=== PATIENT | female | born 1955 | race African-American/Black ===

== ENCOUNTER 2017-11-04 15:26 | Inpatient (IN) | payer OTHER ==
[2017-11-04] MEDS ORDERED: SODIUM CHLORIDE 0.9% 1,000 ML IV STA (15:44)
[2017-11-04] MEDS: NALOXONE 0.4 MG/ML 1 ML VIAL IV STA ×2 (15:53→16:03)
[2017-11-04 16:34] LABS: Basophils % (A) 0 %; Eosinophils # (A) 0.3 k/uL (0-0.7); Eosinophils % (A) 3 %; HCT 48.9 % (34.0-46.0); HGB 13.8 gm/dL (11.4-16.0); Hypochromasia Marked; Lymphocytes % (A) 12 %; MCH 24.9 pg (25.0-35.0); MCHC 28.1 g/dL (31.0-37.0); MCV 88.6 fL (80.0-100.0); Mean Platelet Volume 8.3; Monocytes # (A) 0.5 k/uL (0-1.0); Monocytes % (A) 6 %; Neutrophils # (A) 6.9 k/uL (1.3-7.7); Neutrophils % (A) 78 %; Platelet Count 223 k/uL (150-450); RBC 5.52 m/uL (3.80-5.40); RDW 15.8 % (11.5-15.5); VBG PH 7.33 (7.31-7.41); WBC 8.9 k/uL (3.8-10.6)
[2017-11-04 16:44] LABS: ALT 19 U/L (9-52); AST 18 U/L (14-36); Acetaminophen <10.0 ug/mL; Albumin 4.2 g/dL (3.5-5.0); Alcohol <10 mg/dL; Alkaline Phosphatase 67 U/L (38-126); Anion Gap 15 mmol/L; Blood Urea Nitrogen 40 mg/dL (7-17); Calcium 9.1 mg/dL (8.4-10.2); Carbon Dioxide 30 mmol/L (22-30); Chloride 97 mmol/L (98-107); Glucose 98 mg/dL (74-99); Potassium 5.2 mmol/L (3.5-5.1); Salicylate <1.0 mg/dL; Sodium 142 mmol/L (137-145); Total Bilirubin 0.3 mg/dL (0.2-1.3); Total Protein 7.4 g/dL (6.3-8.2)
--- NOTE | 2017-11-04 17:07 | ED ---
Overdose HPI - General Source: patient, EMS Mode of arrival: EMS Limitations: no limitations <Elvira Fernandez - Last Filed: 11/04/17 17:01> <Narendra Hernandez - Last Filed: 11/04/17 19:03> - General Chief Complaint: Overdose Stated Complaint: Overdose Time Seen by Provider: 11/04/17 15:43 - History of Present Illness Initial Comments: X-ray 2 years old female brought in by ambulance, she was quite unresponsive on arrival embolus crew after informed us that she overdosed with the [employer] there are given him some Narcan she did wake up and then she fell asleep or became unresponsive on arrival she is responsive to sternal rub she wakes up she talks ER but then she falls asleep, no review of system is available from the patient , no recent history of trauma or no obvious injury noticed (Elvira Fernandez) - Related Data Home Medications Medication Instructions Recorded Confirmed Albuterol Inhaler [Ventolin Hfa 1 puff INHALATION RT-Q4H PRN 11/04/17 11/04/17 Inhaler] Albuterol Nebulized (Conc) 2.5 mg INHALATION RT-Q4H 11/04/17 11/04/17 [Ventolin Nebulized (Conc)] Beclomethasone Dipropionate [Qvar 1 puff INHALATION RT-BID 11/04/17 11/04/17 80 mcg] Budesonide/Formoterol Fumarate 1 puff INHALATION RT-BID 11/04/17 11/04/17 [Symbicort 160-4.5 Mcg Inhaler] Carvedilol [Coreg] 3.125 mg PO DAILY 11/04/17 11/04/17 Furosemide [Lasix] 40 mg PO DAILY 11/04/17 11/04/17 Losartan [Cozaar] 25 mg PO DAILY 11/04/17 11/04/17 Vitamin B Complex 1 cap PO DAILY 11/04/17 11/04/17 amLODIPine [Norvasc] 5 mg PO DAILY 11/04/17 11/04/17 Allergies Allergy/AdvReac Type Severity Reaction Status Date / Time No Known Allergies Allergy Verified 11/04/17 16:14 Review of Systems ROS Other: All systems not noted in ROS Statement are negative. <Elvira Fernandez - Last Filed: 11/04/17 17:01> ROS Other: All systems not noted in ROS Statement are negative. <Narendra Hernandez - Last Filed: 11/04/17 19:03> ROS Statement: Those systems with pertinent positive or pertinent negative responses have been documented in the HPI. Past Medical History Past Medical History: No Reported History History of Any Multi-Drug Resistant Organisms: None Reported Past Surgical History: No Surgical Hx Reported Past Psychological History: Unable to Obtain Smoking Status: Current every day smoker Past Alcohol Use History: None Reported Past Drug Use History: Heroin, IV Drug Use, Opiates, Prescription Drug Abuse <Elvira Fernandez - Last Filed: 11/04/17 17:01> General Exam Limitations: no limitations <Elvira Fernandez - Last Filed: 11/04/17 17:> <Narendra Hernandez - Last Filed: 11/04/17 19:03> - General Exam Comments Initial Comments: General: The patient is responsive, wakes up only to sternal rub Skin: Skin is warm and dry and no rashes or lesions are noted. Eye: Pupils are equal, round and reactive to light, extra-ocular movements are intact; there is normal conjunctiva bilaterally. Ears, nose, mouth and throat: There are moist mucous membranes and no oral lesions. Neck: The neck is supple, there is no tenderness no obvious signs of trauma to the scalp or the cervical spine Cardiovascular: There is a regular rate and rhythm. No murmur, rub or gallop is appreciated. Respiratory: To auscultation bilateral, decreased breath sounds bilateral Gastrointestinal: Soft, non-distended, non-tender abdomen without masses or organomegaly noted. There is no rebound or guarding present. Bowel sounds are unremarkable. Back: There is no tenderness to palpation in the midline. There is no obvious deformity. Musculoskeletal: Normal ROM, no tenderness, There is no pedal edema. There is no calf tenderness or swelling. No cords were appreciated. Neurological: After the Narcan exam was unremarkable no motor or sensory deficits noticed. Psychiatric: Cooperative, appropriate mood & affect, normal judgment. (Elvira Fernandez) Course <Elvira Fernandez - Last Filed: 11/04/17 17:> <Narendra Hernandez - Last Filed: 11/04/17 19:03> Vital Signs 11/04/17 11/04/17 11/04/17 15:33 16:00 16:30 Temperature 97.1 F L Pulse Rate 82 80 74 Respiratory 14 16 16 Rate Blood Pressure 149/86 123/81 113/73 O2 Sat by Pulse 96 99 98 Oximetry 11/04/17 17:42 Temperature Pulse Rate 78 Respiratory 18 Rate Blood Pressure 113/70 O2 Sat by Pulse 94 L Oximetry EKG is a sinus, ventricular rate is 82 ID interval is 154 QRS duration is 84 QT/ QTc is 392/457 noticed T-wave inversion in lead [address] elevation or ST depression noticed any other leads , She is reassessed at term 1700, CBC, comp his metabolic panel are unremarkable except the creatinine is 1.6 and urine drug screen at this point but blood test is negative for any aspirin and Tylenol or alcohol, patient is still sleepy wakes up but not stable I'm going to go ahead and order a head CT will continue to hydrate her patient is endorsed to Dr. Estrella For further evaluation (Elvira Fernandez) - Reevaluation(s) Reevaluation #1: 11/04/17 19:00 Patient reevaluated this time completely unresponsive despite pressure points applied, and repeated doses of Narcan. CT brain was negative, patient has ABG showing significant CO2 narcosis, will intubate 11/04/17 19:00 (Narendra Hernandez) Procedures - Intubation Time Out Performed: Yes Sedative: Versed Paralytic: Succinylcholine Laryngoscope: Ese Size: 4 Assist Device Used: Bougie ET Tube Size: 7.5 ET Tube Uncuffed: Yes Tube Secured Location: teeth Tube Placement Confirmation: visualized tube passing through cords, equal breath sounds bilaterally Patient Tolerated Procedure: well Intubation Complications: none <Narendra Hernandez - Last Filed: 11/04/17 19:03> Medical Decision Making - Lab Data Result diagrams: 11/04/17 16:25 11/04/17 16:25 <Elvira Fernandez - Last Filed: 11/04/17 17:01> - Lab Data Result diagrams: 11/04/17 16:25 11/04/17 16:25 - Radiology Data Radiology results: report reviewed (DT brain negative chest x-ray shows positive to position), image reviewed <Narendra Hernandez - Last Filed: 11/04/17 19:03> - Medical Decision Making 62 female for overdose compounded by acute hyperactive Hypercarbic respiratory failure. Despite Narcan patient was unresponsive, patient intubated, will admit to ICU (Narendra Hernandez) - Lab Data Lab Results 11/04/17 11/04/17 11/04/17 Range/Units 16:25 16:25 16:25 WBC 8.9 (3.8-10.6) k/uL RBC 5.52 H (3.80-5.40) m/uL Hgb 13.8 (11.4-16.0) gm/dL Hct 48.9 H (34.0-46.0) % MCV 88.6 (80.0-100.0) fL MCH 24.9 L (25.0-35.0) pg MCHC 28.1 L (31.0-37.0) g/dL RDW 15.8 H (11.5-15.5) % Plt Count 223 (150-450) k/uL Neutrophils % 78 % Lymphocytes % 12 % Monocytes % 6 % Eosinophils % 3 % Basophils % 0 % Neutrophils # 6.9 (1.3-7.7) k/uL Lymphocytes # 1.0 (1.0-4.8) k/uL Monocytes # 0.5 (0-1.0) k/uL Eosinophils # 0.3 (0-0.7) k/uL Basophils # 0.0 (0-0.2) k/uL Hypochromasia Marked VBG pH (7.31-7.41) VBG pCO2 (37-51) mmHg VBG HCO3 (24-28) mmol/L Sodium 142 (137-145) mmol/L Potassium 5.2 H (3.5-5.1) mmol/L Chloride 97 L (98-107) mmol/L Carbon Dioxide 30 (22-30) mmol/L Anion Gap 15 mmol/L BUN 40 H (7-17) mg/dL Creatinine 1.60 H (0.52-1.04) mg/dL Est GFR (CKD-EPI)AfAm 40 (>60 ml/min/1.73 sqM) Est GFR (CKD-EPI)NonAf 35 (>60 ml/min/1.73 sqM) Glucose 98 (74-99) mg/dL Plasma Lactic Acid Kyree <0.5 L (0.7-2.0) mmol/L Calcium 9.1 (8.4-10.2) mg/dL Total Bilirubin 0.3 (0.2-1.3) mg/dL AST 18 (14-36) U/L ALT 19 (9-52) U/L Alkaline Phosphatase 67 (38-126) U/L Troponin I (0.000-0.034) ng/mL Total Protein 7.4 (6.3-8.2) g/dL Albumin 4.2 (3.5-5.0) g/dL Urine HCG, Qual (Not Detectd) Salicylates <1.0 mg/dL Urine Opiates Screen (NotDetected) Ur Oxycodone Screen (NotDetected) Urine Methadone Screen (NotDetected) Ur Propoxyphene Screen (NotDetected) Acetaminophen <10.0 ug/mL Ur Barbiturates Screen (NotDetected) U Tricyclic Antidepress (NotDetected) Ur Phencyclidine Scrn (NotDetected) Ur Amphetamines Screen (NotDetected) U Methamphetamines Scrn (NotDetected) U Benzodiazepines Scrn (NotDetected) Urine Cocaine Screen (NotDetected) U Marijuana (THC) Screen (NotDetected) Serum Alcohol <10 mg/dL 11/04/17 11/04/17 11/04/17 Range/Units 16:25 16:25 17:20 WBC (3.8-10.6) k/uL RBC (3.80-5.40) m/uL Hgb (11.4-16.0) gm/dL Hct (34.0-46.0) % MCV (80.0-100.0) fL MCH (25.0-35.0) pg MCHC (31.0-37.0) g/dL RDW (11.5-15.5) % Plt Count (150-450) k/uL Neutrophils % % Lymphocytes % % Monocytes % % Eosinophils % % Basophils % % Neutrophils # (1.3-7.7) k/uL Lymphocytes # (1.0-4.8) k/uL Monocytes # (0-1.0) k/uL Eosinophils # (0-0.7) k/uL Basophils # (0-0.2) k/uL Hypochromasia VBG pH 7.33 (7.31-7.41) VBG pCO2 59 H (37-51) mmHg VBG HCO3 30 H (24-28) mmol/L Sodium (137-145) mmol/L Potassium (3.5-5.1) mmol/L Chloride (98-107) mmol/L Carbon Dioxide (22-30) mmol/L Anion Gap mmol/L BUN (7-17) mg/dL Creatinine (0.52-1.04) mg/dL Est GFR (CKD-EPI)AfAm (>60 ml/min/1.73 sqM) Est GFR (CKD-EPI)NonAf (>60 ml/min/1.73 sqM) Glucose (74-99) mg/dL Plasma Lactic Acid Kyree (0.7-2.0) mmol/L Calcium (8.4-10.2) mg/dL Total Bilirubin (0.2-1.3) mg/dL AST (14-36) U/L ALT (9-52) U/L Alkaline Phosphatase (38-126) U/L Troponin I 0.015 (0.000-0.034) ng/mL Total Protein (6.3-8.2) g/dL Albumin (3.5-5.0) g/dL Urine HCG, Qual (Not Detectd) Salicylates mg/dL Urine Opiates Screen Detected H (NotDetected) Ur Oxycodone Screen Not Detected (NotDetected) Urine Methadone Screen Not Detected (NotDetected) Ur Propoxyphene Screen Not Detected (NotDetected) Acetaminophen ug/mL Ur Barbiturates Screen Not Detected (NotDetected) U Tricyclic Antidepress Not Detected (NotDetected) Ur Phencyclidine Scrn Not Detected (NotDetected) Ur Amphetamines Screen Not Detected (NotDetected) U Methamphetamines Scrn Not Detected (NotDetected) U Benzodiazepines Scrn Not Detected (NotDetected) Urine Cocaine Screen Not Detected (NotDetected) U Marijuana (THC) Screen Not Detected (NotDetected) Serum Alcohol mg/dL 11/04/17 Range/Units 17:20 WBC (3.8-10.6) k/uL RBC (3.80-5.40) m/uL Hgb (11.4-16.0) gm/dL Hct (34.0-46.0) % MCV (80.0-100.0) fL MCH (25.0-35.0) pg MCHC (31.0-37.0) g/dL RDW (11.5-15.5) % Plt Count (150-450) k/uL Neutrophils % % Lymphocytes % % Monocytes % % Eosinophils % % Basophils % % Neutrophils # (1.3-7.7) k/uL Lymphocytes # (1.0-4.8) k/uL Monocytes # (0-1.0) k/uL Eosinophils # (0-0.7) k/uL Basophils # (0-0.2) k/uL Hypochromasia VBG pH (7.31-7.41) VBG pCO2 (37-51) mmHg VBG HCO3 (24-28) mmol/L Sodium (137-145) mmol/L Potassium (3.5-5.1) mmol/L Chloride (98-107) mmol/L Carbon Dioxide (22-30) mmol/L Anion Gap mmol/L BUN (7-17) mg/dL Creatinine (0.52-1.04) mg/dL Est GFR (CKD-EPI)AfAm (>60 ml/min/1.73 sqM) Est GFR (CKD-EPI)NonAf (>60 ml/min/1.73 sqM) Glucose (74-99) mg/dL Plasma Lactic Acid Kyree (0.7-2.0) mmol/L Calcium (8.4-10.2) mg/dL Total Bilirubin (0.2-1.3) mg/dL AST (14-36) U/L ALT (9-52) U/L Alkaline Phosphatase (38-126) U/L Troponin I (0.000-0.034) ng/mL Total Protein (6.3-8.2) g/dL Albumin (3.5-5.0) g/dL Urine HCG, Qual Not Detected (Not Detectd) Salicylates mg/dL Urine Opiates Screen (NotDetected) Ur Oxycodone Screen (NotDetected) Urine Methadone Screen (NotDetected) Ur Propoxyphene Screen (NotDetected) Acetaminophen ug/mL Ur Barbiturates Screen (NotDetected) U Tricyclic Antidepress (NotDetected) Ur Phencyclidine Scrn (NotDetected) Ur Amphetamines Screen (NotDetected) U Methamphetamines Scrn (NotDetected) U Benzodiazepines Scrn (NotDetected) Urine Cocaine Screen (NotDetected) U Marijuana (THC) Screen (NotDetected) Serum Alcohol mg/dL Critical Care Time Critical Care Time: Yes Total Critical Care Time: 31 <Narendra Hernandez - Last Filed: 11/04/17 19:03> Disposition <Elvira Fernandez - Last Filed: 11/04/17 17:01> Is patient prescribed a controlled substance at d/c from ED?: No <Narendra Hernandez - Last Filed: 11/04/17 19:03> Clinical Impression: Overdose, Acute hypercapnic respiratory failure, Heroin overdose Disposition: ADMITTED IP TO THIS HOSP Condition: Serious Referrals: None,Stated [Primary Care Provider] - 1-2 days
--- NOTE | 2017-11-04 17:23 | XR ---
EXAMINATION: XR chest 1V portable DATE AND TIME: 11/04/2017 4:57 PM ORDERING PROVIDER: Elvira Fernandez CLINICAL INDICATION: Rule out aspiration pneumonia TECHNIQUE: Upright noncentered portable radiograph. COMPARISON: None. DESCRIPTION: Limitations: The overlying soft tissues are very prominent, limiting visualization. Also limiting the examination is the center of the x-ray beam being off midline. The cardiac silhouette is at least moderately enlarged. There is silhouetting of the left hemidiaphra gm. There is no silhouetting of the right sided pleural reflections, and the left upper lung parenchy ma is clear and well expanded. The arborization of the mid and lower pulmonary vasculature is silhouetted, but difficult to further characterize given the prominent limitations above Pleural spaces are negative. Bones and soft tissues are negative for acute findings. IMPRESSION: 1. Negative for pneumothorax. 2. Dense opacification of the left mid and lower lung parenchyma, which could represent prominent lef t pleural effusion with prominent volume of passive atelectasis, with concurrent bronchopneumonia pos sible. 3. Prominently enlarged cardiac silhouette.
[2017-11-04] MEDS ORDERED: ONDANSETRON 4 MG/2 ML VIAL IVP STA (17:32)
[2017-11-04] MEDS ORDERED: SODIUM CHLORIDE 0.9% 500 ML IV STA (17:32)
[2017-11-04 17:39] LABS: Amphetamine Screen,Urine Not Detected (NotDetected); Barbiturate Screen,Urine Not Detected (NotDetected); Benzodiazepines Screen,Urine Not Detected (NotDetected); Cocaine Screen,Urine Not Detected (NotDetected); Methadone Screen, Urine Not Detected (NotDetected); Opiate Screen,Urine Detected (NotDetected); Oxycodone Screen, Urine Not Detected (NotDetected); Phencyclidine Screen,Urine Not Detected (NotDetected); Tricyclic Antidepressant,Urine Not Detected (NotDetected); Urn Cannabinoid Scrn Not Detected (NotDetected)
[2017-11-04] MEDS: NALOXONE 0.4 MG/ML 10 ML VIAL IVP STA ×2 (17:41→18:07)
--- NOTE | 2017-11-04 18:18 | CT ---
EXAMINATION: CT brain wo con DATE AND TIME: 11/04/2017 6:05 PM ORDERING PROVIDER: Elvira Fernandez CLINICAL INDICATION: Pain TECHNIQUE: Standard departmental protocol. COMPARISON: None. DESCRIPTION: There is patient motion artifact on all sequences limiting accuracy of the study, particularly at the periphery. The calvarium is intact. There is no intracranial hemorrhage. There is no mass or mass effect. There is no definite new attenuation defect. Remainder of the intra- axial and extra-axial compartment examination is unremarkable. The paranasal sinuses, middle ear cavities, and mastoid sinus air cells are clear. The orbits are int act. IMPRESSION: NO DEFINITE ACUTE PROCESS.
[2017-11-04 18:21] LABS: ABG Oxygen Saturation 85.1 % (94-97); ABG PO2 63 mmHg (83-108)
[2017-11-04] MEDS ORDERED: MIDAZOLAM (PF) 1 MG/ML 5 ML VIAL IV STA (18:32)
[2017-11-04] MEDS ORDERED: SUCCINYLCHOLINE CHLORIDE VIAL 200 MG/10 ML VIAL IV STA (18:32)
[2017-11-04] MEDS ORDERED: PROPOFOL 1,000 MG in EMPTY BAG 1 BAG IV ONE (18:59)
[2017-11-04] MEDS ORDERED: NALOXONE 0.4 MG/ML 1 ML VIAL IV PRN (19:03)
[2017-11-04 19:18] LABS: ABG PCO2 >120 mmHg (35-45); ABG PH 7.07 (7.35-7.45)
--- NOTE | 2017-11-04 19:35 | XR ---
EXAMINATION: XR chest 1V portable DATE AND TIME: 11/04/2017 7:15 PM ORDERING PROVIDER: Narendra Hernandez DO CLINICAL INDICATION: tube placement TECHNIQUE: AP portable supine COMPARISON: 11/04/2017 at 4:54 PM DESCRIPTION: Since the previous study today, patient is intubated with ET tube tip superimposed over the mid trach ea. NG tube is present, coursing over the visualized stomach. EKG leads noted. Bilaterally enlarged cardiac silhouette redemonstrated. The overlying soft tissues are very prominent. The hemidiaphragms are elevated, consistent with low l meredith inflation at the moment of x-ray exposure. This crowds the pulmonary vasculature. Despite these f actors, there does appear to be mild fine reticular pattern throughout the lungs bilaterally. Limitation: Supine radiography cannot exclude pneumothorax or pneumoperitoneum. IMPRESSION: Suspect mild interstitial pulmonary edema presumably cardiogenic etiology.
[2017-11-04] MEDS ORDERED: LORazepam 2 MG/ML INJ IV STA (19:36)
--- NOTE | 2017-11-04 19:50 | XR ---
EXAMINATION: XR chest 1V DATE AND TIME: 11/04/2017 7:36 PM ORDERING PROVIDER: Narendra Hernandez CLINICAL INDICATION: NG tube placement TECHNIQUE: Supine portable technique COMPARISON: 11/04/2017 at 6:54 PM DESCRIPTION: ET tube tip superimposed over the mid trachea. NG tube present. EKG leads. Lung inflation pattern appears similar to the prior study with evidence of mild pulmonary edema. No evident abnormal gas or fluid collections. Limitation: Supine radiography cannot exclude pneumothorax or pneumoperitoneum. IMPRESSION: STABLE APPEARANCE.
[2017-11-04 19:57] LABS: ABG Base Excess 5.5 mmol/L; ABG HCO3 34 mmol/L (21-25); ABG Oxygen Saturation 98.5 % (94-97); ABG PO2 123 mmHg (83-108); ABG TCO2 37 mmol/L (19-24)
[2017-11-04 20:05] LABS: ABG PCO2 89 mmHg (35-45); ABG PH 7.19 (7.35-7.45)
[2017-11-04 20:39] LABS: Glucose,Whole Blood 104 mg/dL (75-99)
[2017-11-04] MEDS: IPRATROPIUM-ALBUTEROL 3 ML NEB INHALATION SCH (20:39)
[2017-11-04] MEDS: SODIUM CHLORIDE 0.9% 1,000 ML IV SCH (22:00)
[2017-11-04] MEDS ORDERED: PROPOFOL 100 ML IV ONE (22:20)
[2017-11-04] MEDS: PROPOFOL 1,000 MG in EMPTY BAG 1 BAG IV SCH (22:30)
[2017-11-04] MEDS ORDERED: SCOPOLAMINE 1.5MG/72HR PATCH TRANSDERM SCH (22:30)
[2017-11-05] MEDS: PROPOFOL 1,000 MG in EMPTY BAG 1 BAG IV SCH ×5 (01:20→15:51)
[2017-11-05 04:45] LABS: ABG Base Excess 12.6 mmol/L; ABG HCO3 36 mmol/L (21-25); ABG Oxygen Saturation 96.8 % (94-97); ABG PCO2 45 mmHg (35-45); ABG PH 7.51 (7.35-7.45); ABG PO2 76 mmHg (83-108); ABG TCO2 37 mmol/L (19-24)
[2017-11-05 05:13] LABS: Basophils % (A) 0 %; Eosinophils # (A) 0.1 k/uL (0-0.7); Eosinophils % (A) 2 %; HGB 13.2 gm/dL (11.4-16.0); Hypochromasia Marked; Lymphocytes % (A) 11 %; MCH 25.9 pg (25.0-35.0); MCHC 30.1 g/dL (31.0-37.0); MCV 86.2 fL (80.0-100.0); Mean Platelet Volume 7.6; Monocytes # (A) 0.6 k/uL (0-1.0); Monocytes % (A) 6 %; Neutrophils # (A) 7.6 k/uL (1.3-7.7); Neutrophils % (A) 80 %; Platelet Count 224 k/uL (150-450); Poikilocytosis Slight; RDW 15.8 % (11.5-15.5); WBC 9.5 k/uL (3.8-10.6)
[2017-11-05 05:52] LABS: Albumin 3.3 g/dL (3.5-5.0); Calcium 9.1 mg/dL (8.4-10.2); Magnesium 2.1 mg/dL (1.6-2.3); Phosphorus 2.7 mg/dL (2.5-4.5); Potassium 4.7 mmol/L (3.5-5.1); Total Bilirubin 0.4 mg/dL (0.2-1.3); Total Protein 6.1 g/dL (6.3-8.2)
--- NOTE | 2017-11-05 06:52 | XR ---
EXAMINATION TYPE: XR chest 1V DATE OF EXAM: 11/05/2017 HISTORY: intubation. REFERENCE: Previous study dated 11/04/2017. FINDINGS: The patient is ET tube and NG tube remain in place, unchanged in appearance. There is worsening bibasilar infiltrates. There is a small left effusion. The heart is mildly enlarge d. IMPRESSION: 1. WORSENING BIBASILAR INFILTRATES. 2. SMALL LEFT EFFUSION. 3. MILD CARDIOMEGALY.
[2017-11-05] MEDS: IPRATROPIUM-ALBUTEROL 3 ML NEB INHALATION SCH ×4 (07:40→20:58)
[2017-11-05] MEDS: ENOXAPARIN 40 MG/0.4 ML SYRINGE SQ SCH (08:46)
[2017-11-05] MEDS ORDERED: LOSARTAN 25 MG TAB PO SCH (11:00)
--- NOTE | 2017-11-05 11:16 | P.CNPUL ---
History of Present Illness Consult date: 11/05/17 Reason for consult: other Chief complaint: Respiratory failure secondary to heroin overdose History of present illness: Primary consult dated 11/05/2017 62-year-old female brought in by ambulance. She was poorly responsive. She apparently overdosed on some heroin. She received Narcan but did not really wake up well. Despite that, and despite sternal rubbing, she kept on falling back off to sleep in the ER doctor was concerned that she cannot protect her airway. She apparently was either just getting out of her going into [place]. Anyway the patient was intubated in the emergency room by the ER physician. She is here in the ICU. We are going to stop her propofol and see if we cannot wake her up and get her weaned and extubated from mechanical ventilation. The patient apparently has a history of asthma as well as hypertension. Medications: Amlodipine vitamin D losartan Lasix Coreg Symbicort and albuterol. The patient apparently does not have any ALLERGIES. She apparently does have a history of abuse of prescription drugs opiates and heroin. She is a current every day smoker. She is currently on the ventilator , resting comfortably. She is on the volume assist control mode with a rate of 28, tidal volume 400, FiO2 50%, PEEP of 5. Arterial blood gases show a PaO2 of 76 a PaCO2 of 45 and a pH is 7.51. This is consistent with metabolic alkalosis. She's on herbal fall and 50 mics per kilogram per minute and a saline IV at 20 mL an hour. Review of Systems ROS unobtainable: due to endotracheal tube Past Medical History Past Medical History: Asthma, COPD, Hypertension, Pneumonia, Respiratory Disorder, Sleep Apnea/CPAP/BIPAP Additional Past Medical History / Comment(s): Home O2 at night 3-4 L. HEP C positive History of Any Multi-Drug Resistant Organisms: None Reported Past Surgical History: No Surgical Hx Reported Past Anesthesia/Blood Transfusion Reactions: No Reported Reaction Past Psychological History: Anxiety Smoking Status: Current every day smoker Past Alcohol Use History: Rare Past Drug Use History: Heroin, IV Drug Use, Opiates, Prescription Drug Abuse Medications and Allergies Home Medications Medication Instructions Recorded Confirmed Type Albuterol Inhaler [Ventolin Hfa 1 puff INHALATION RT-Q4H PRN 11/04/17 11/04/17 History Inhaler] Albuterol Nebulized (Conc) 2.5 mg INHALATION RT-Q4H 11/04/17 11/04/17 History [Ventolin Nebulized (Conc)] Beclomethasone Dipropionate [Qvar 1 puff INHALATION RT-BID 11/04/17 11/04/17 History 80 mcg] Budesonide/Formoterol Fumarate 1 puff INHALATION RT-BID 11/04/17 11/04/17 History [Symbicort 160-4.5 Mcg Inhaler] Carvedilol [Coreg] 3.125 mg PO DAILY 11/04/17 11/04/17 History Furosemide [Lasix] 40 mg PO DAILY 11/04/17 11/04/17 History Losartan [Cozaar] 25 mg PO DAILY 11/04/17 11/04/17 History Vitamin B Complex 1 cap PO DAILY 11/04/17 11/04/17 History amLODIPine [Norvasc] 5 mg PO DAILY 11/04/17 11/04/17 History Allergies Allergy/AdvReac Type Severity Reaction Status Date / Time No Known Allergies Allergy Verified 11/04/17 16:14 Physical Exam Osteopathic Statement: *. No significant issues noted on an osteopathic structural exam other than those noted in the History and Physical/Consult. Vitals: Vital Signs Temp Pulse Pulse Resp BP Pulse Ox 11/05/17 09:00 86 28 H 153/82 99 11/05/17 08:02 93 11/05/17 08:00 98.6 F 97 24 158/85 100 11/05/17 07:46 87 11/05/17 07:00 89 28 H 151/89 100 11/05/17 06:00 87 28 H 155/88 95 11/05/17 05:00 85 28 H 151/81 95 11/05/17 04:00 98.0 F 85 69 27 H 153/84 96 11/05/17 03:00 86 11 L 161/82 100 11/05/17 02:00 80 27 H 158/82 100 11/05/17 01:00 73 18 156/88 100 11/05/17 00:00 98.3 F 75 69 27 H 164/98 96 11/04/17 23:00 75 14 170/107 100 11/04/17 22:57 77 18 170/107 100 11/04/17 22:00 68 24 169/103 100 11/04/17 21:00 98.3 F 70 24 155/99 98 11/04/17 20:55 71 11/04/17 20:39 86 11/04/17 20:38 81 11/04/17 20:02 98.1 F 70 24 135/58 100 11/04/17 19:58 69 11/04/17 19:43 66 22 134/92 100 11/04/17 19:25 74 16 140/67 95 11/04/17 19:24 68 16 129/60 100 11/04/17 17:42 78 18 113/70 94 L 11/04/17 16:30 74 16 113/73 98 11/04/17 16:00 80 16 123/81 99 11/04/17 15:33 97.1 F L 82 14 149/86 96 Intake and Output 11/04/17 11/05/17 11/05/17 22:59 06:59 14:59 Intake Total 2.818 438.262 160 Output Total 420 180 Balance 2.818 18.262 -20 Intake: IV 160 60 Sodium Chloride 0.9% 1, 160 60 000 ml @ 20 mls/hr IV . Q24H [facility] Rx#:[id number] Intake, IV Titration 2.818 278.262 100 Amount Propofol 1,000 mg In 278.262 100 Empty Bag 1 bag @ 40 MCG/ KG/MIN 31.57 mls/hr IV . Q3H11M [facility] Rx#:[id number] Propofol 1,000 mg In 2.818 Empty Bag 1 bag @ Titrate IV .Q0M [facility] Rx#: [id number] Output: Urine 420 180 Other: Voiding Method Indwelling Catheter Indwelling Catheter Weight 131.542 kg 129.4 kg 130.4 kg No acute distress, sedated on propofol. HEENT examination is grossly unremarkable. Mucous membranes are moist. Oral endotracheal tube and NG tube noted. Neck supple. Full range of motion. No adenopathy thyromegaly or neck vein distention. Cardiovascular examination reveals regular rhythm rate. S1-S2 normal. No S3 or S4. No discernible murmur noted. Lungs reveal coarse bilateral breath sounds. Breath sounds are equal bilaterally. No wheezes. No crackles. Abdomen soft bowel sounds are heard. No masses or tenderness. Extremities are intact. No cyanosis clubbing or edema. Skin is without rash or lesion. Neurologic examination cannot be properly assessed. Results - Laboratory Findings CBC and BMP: 11/05/17 04:36 11/05/17 04:36 ABG ABG pH 7.51 (7.35-7.45) H 11/05/17 04:44 ABG pCO2 45 mmHg (35-45) 11/05/17 04:44 ABG pO2 76 mmHg (83-108) L 11/05/17 04:44 ABG O2 Saturation 96.8 % (94-97) 11/05/17 04:44 Abnormal lab findings: Abnormal Labs 11/04/17 11/04/17 11/04/17 16:25 16:25 16:25 RBC 5.52 H Hct 48.9 H MCH 24.9 L MCHC 28.1 L RDW 15.8 H ABG pH ABG pCO2 ABG pO2 ABG HCO3 ABG Total CO2 ABG O2 Saturation VBG pCO2 VBG HCO3 Potassium 5.2 H Chloride 97 L Carbon Dioxide BUN 40 H Creatinine 1.60 H POC Glucose (mg/dL) Plasma Lactic Acid Kyree <0.5 L AST Total Protein Albumin Urine Opiates Screen 11/04/17 11/04/17 11/04/17 16:25 17:20 18:18 RBC Hct MCH MCHC RDW ABG pH 7.07 L* ABG pCO2 >120 H* ABG pO2 63 L ABG HCO3 ABG Total CO2 ABG O2 Saturation 85.1 L VBG pCO2 59 H VBG HCO3 30 H Potassium Chloride Carbon Dioxide BUN Creatinine POC Glucose (mg/dL) Plasma Lactic Acid Kyree AST Total Protein Albumin Urine Opiates Screen Detected H 11/04/17 11/04/17 11/05/17 19:52 20:37 04:36 RBC Hct MCH MCHC 30.1 L RDW 15.8 H ABG pH 7.19 L* ABG pCO2 89 H* ABG pO2 123 H ABG HCO3 34 H ABG Total CO2 37 H ABG O2 Saturation 98.5 H VBG pCO2 VBG HCO3 Potassium Chloride Carbon Dioxide BUN Creatinine POC Glucose (mg/dL) 104 H Plasma Lactic Acid Kyree AST Total Protein Albumin Urine Opiates Screen 11/05/17 11/05/17 04:36 04:44 RBC Hct MCH MCHC RDW ABG pH 7.51 H ABG pCO2 ABG pO2 76 L ABG HCO3 36 H ABG Total CO2 37 H ABG O2 Saturation VBG pCO2 VBG HCO3 Potassium Chloride Carbon Dioxide 31 H BUN 35 H Creatinine 1.10 H POC Glucose (mg/dL) Plasma Lactic Acid Kyree AST 13 L Total Protein 6.1 L Albumin 3.3 L Urine Opiates Screen - Diagnostic Findings Chest x-ray: image reviewed (Chest x-ray labs and medications are reviewed.) Assessment and Plan Assessment: Assessment Status post overdose on heroin with hypoxemic and hypercapnic respiratory failure, status post intubation and mechanical ventilation History of hypertension History of COPD/asthma History of IV drug abuse and opiate abuse as well as prescription drug abuse and Obesity History of ongoing tobacco use with nicotine addiction Plan: Plan dated 11/04/2017 The patient appears stable. The patient's propofol will be discontinued. We' ll see if we can't wake the patient up and towards weaning and extubation. Current blood gases show a mild metabolic alkalosis. She is on saline IV at 20 mL an hour. Additional recommendations and suggestions are forthcoming. We'll continue to follow. Labs x-rays a medications are reviewed. Labs look pretty reasonable. Chest x-ray may show some minimal infiltrate or atelectasis at the bases left greater than right. May relate to aspiration. Time with Patient: Greater than 30
[2017-11-05] MEDS: amLODIPine 5 MG TAB PO SCH (11:26)
[2017-11-05 14:03] LABS: ABG Base Excess 10.1 mmol/L; ABG HCO3 36 mmol/L (21-25); ABG Oxygen Saturation 94.7 % (94-97); ABG PH 7.32 (7.35-7.45); ABG PO2 81 mmHg (83-108); ABG TCO2 38 mmol/L (19-24)
[2017-11-05] MEDS: FUROSEMIDE 40 MG TAB PO SCH (14:36)
[2017-11-05] MEDS: CARVEDILOL 3.125 MG TAB PO SCH (14:36)
--- NOTE | 2017-11-05 16:15 | P.HPIM ---
History of Present Illness H&P Date: 11/05/17 Chief Complaint: Unresponsive Patient is a 62-year-old female with a known history of asthma/COPD, hypertension, obstructive sleep apnea on CPAP and home O2 at night 3-4 L and hepatitis C was brought to the hospital via ambulance as the patient was unresponsive and overdosed. Patient was given Narcan in the ER. Patient has been sleepy and falling of and subsequently intubated in the ER for airway protection. Currently on mechanical ventilation. Propofol drip has been discontinued and patient is waking up but still drowsy and unable to provide any history at this time. Complete review of systems could not be obtained from the patient EKG showed sinus rhythm with atrial complexes Chest x-ray negative for pneumothorax. Dancer based just now the left mid and lower lung parenchyma which could represent prominent left pleural effusion with prominent volume of passive atelectasis with concurrent bronchopneumonia possible. Prominently enlarged cardiac silhouette. CT head showed no acute process Review of Systems Complete review of systems could not be obtained from the patient Past Medical History Past Medical History: Asthma, COPD, Hypertension, Pneumonia, Respiratory Disorder, Sleep Apnea/CPAP/BIPAP Additional Past Medical History / Comment(s): Home O2 at night 3-4 L. HEP C positive History of Any Multi-Drug Resistant Organisms: None Reported Past Surgical History: No Surgical Hx Reported Past Anesthesia/Blood Transfusion Reactions: No Reported Reaction Past Psychological History: Anxiety Smoking Status: Current every day smoker Past Alcohol Use History: Rare Past Drug Use History: Heroin, IV Drug Use, Opiates, Prescription Drug Abuse Medications and Allergies Home Medications Medication Instructions Recorded Confirmed Type Albuterol Inhaler [Ventolin Hfa 1 puff INHALATION RT-Q4H PRN 11/04/17 11/04/17 History Inhaler] Albuterol Nebulized (Conc) 2.5 mg INHALATION RT-Q4H 11/04/17 11/04/17 History [Ventolin Nebulized (Conc)] Beclomethasone Dipropionate [Qvar 1 puff INHALATION RT-BID 11/04/17 11/04/17 History 80 mcg] Budesonide/Formoterol Fumarate 1 puff INHALATION RT-BID 11/04/17 11/04/17 History [Symbicort 160-4.5 Mcg Inhaler] Carvedilol [Coreg] 3.125 mg PO DAILY 11/04/17 11/04/17 History Furosemide [Lasix] 40 mg PO DAILY 11/04/17 11/04/17 History Losartan [Cozaar] 25 mg PO DAILY 11/04/17 11/04/17 History Vitamin B Complex 1 cap PO DAILY 11/04/17 11/04/17 History amLODIPine [Norvasc] 5 mg PO DAILY 11/04/17 11/04/17 History Allergies Allergy/AdvReac Type Severity Reaction Status Date / Time No Known Allergies Allergy Verified 11/04/17 16:14 Physical Exam Vitals: Vital Signs Temp Pulse Pulse Resp BP Pulse Ox 11/05/17 12:00 82 28 H 163/87 99 11/05/17 11:00 88 27 H 177/101 99 11/05/17 10:00 88 27 H 164/88 99 11/05/17 09:00 86 28 H 153/82 99 11/05/17 08:02 93 11/05/17 08:00 98.6 F 97 24 158/85 100 11/05/17 07:46 87 11/05/17 07:00 89 28 H 151/89 100 11/05/17 06:00 87 28 H 155/88 95 11/05/17 05:00 85 28 H 151/81 95 11/05/17 04:00 98.0 F 85 69 27 H 153/84 96 11/05/17 03:00 86 11 L 161/82 100 11/05/17 02:00 80 27 H 158/82 100 11/05/17 01:00 73 18 156/88 100 11/05/17 00:00 98.3 F 75 69 27 H 164/98 96 11/04/17 23:00 75 14 170/107 100 11/04/17 22:57 77 18 170/107 100 11/04/17 22:00 68 24 169/103 100 11/04/17 21:00 98.3 F 70 24 155/99 98 11/04/17 20:55 71 11/04/17 20:39 86 11/04/17 20:38 81 11/04/17 20:02 98.1 F 70 24 135/58 100 11/04/17 19:58 69 11/04/17 19:43 66 22 134/92 100 11/04/17 19:25 74 16 140/67 95 11/04/17 19:24 68 16 129/60 100 11/04/17 17:42 78 18 113/70 94 L 11/04/17 16:30 74 16 113/73 98 11/04/17 16:00 80 16 123/81 99 11/04/17 15:33 97.1 F L 82 14 149/86 96 Intake and Output 11/04/17 11/05/17 11/05/17 22:59 06:59 14:59 Intake Total 2.818 438.262 240 Output Total 420 360 Balance 2.818 18.262 -120 Intake: IV 160 120 Sodium Chloride 0.9% 1, 160 120 000 ml @ 20 mls/hr IV . Q24H [facility] Rx#:[id number] Intake, IV Titration 2.818 278.262 100 Amount Propofol 1,000 mg In 278.262 100 Empty Bag 1 bag @ 40 MCG/ KG/MIN 31.57 mls/hr IV . Q3H11M [facility] Rx#:[id number] Propofol 1,000 mg In 2.818 Empty Bag 1 bag @ Titrate IV .Q0M ONE Rx#: [id number] Tube Feeding 20 Output: Urine 420 360 Other: Voiding Method Indwelling Catheter Indwelling Catheter Weight 131.542 kg 129.4 kg 130.4 kg PHYSICAL EXAMINATION: Patient is lying in the bed comfortably, no acute distress, patient is currently sedated and intubated HEENT: Normocephalic. Neck is supple. Pupils reactive. Nostrils clear. Oral cavity is moist. Ears reveal no drainage. Neck reveals no JVD, carotid bruits, or thyromegaly. CHEST EXAMINATION: Trachea is central. Symmetrical expansion. Bilateral diffuse rhonchi. No wheezing. CARDIAC: Normal S1, S2 with no gallops. No murmurs ABDOMEN: Soft. Obese. Bowel sounds normal. No organomegaly. No abdominal bruits. Extremities: reveal no edema. No clubbing or cyanosis Neurologically currently sedated. No focal deficits noted Skin: No rash or skin lesions. Psychiatric: Could not be assessed at this time Musculoskeletal: No joint swelling or deformity. Normal range of motion. Results CBC & Chem 7: 11/05/17 04:36 11/05/17 04:36 Labs: Abnormal Lab Results - Last 24 Hours (Table) 05/04/18 05/04/18 05/04/18 Range/Units 16:25 16:25 16:25 RBC 5.52 H (3.80-5.40) m/uL Hct 48.9 H (34.0-46.0) % MCH 24.9 L (25.0-35.0) pg MCHC 28.1 L (31.0-37.0) g/dL RDW 15.8 H (11.5-15.5) % ABG pH (7.35-7.45) ABG pCO2 (35-45) mmHg ABG pO2 (83-108) mmHg ABG HCO3 (21-25) mmol/L ABG Total CO2 (19-24) mmol/L ABG O2 Saturation (94-97) % VBG pCO2 (37-51) mmHg VBG HCO3 (24-28) mmol/L Potassium 5.2 H (3.5-5.1) mmol/L Chloride 97 L (98-107) mmol/L Carbon Dioxide (22-30) mmol/L BUN 40 H (7-17) mg/dL Creatinine 1.60 H (0.52-1.04) mg/dL POC Glucose (mg/dL) (75-99) mg/dL Plasma Lactic Acid Kyree <0.5 L (0.7-2.0) mmol/L AST (14-36) U/L Total Protein (6.3-8.2) g/dL Albumin (3.5-5.0) g/dL Urine Opiates Screen (NotDetected) 11/04/17 11/04/17 11/04/17 Range/Units 16:25 17:20 18:18 RBC (3.80-5.40) m/uL Hct (34.0-46.0) % MCH (25.0-35.0) pg MCHC (31.0-37.0) g/dL RDW (11.5-15.5) % ABG pH 7.07 L* (7.35-7.45) ABG pCO2 >120 H* (35-45) mmHg ABG pO2 63 L (83-108) mmHg ABG HCO3 (21-25) mmol/L ABG Total CO2 (19-24) mmol/L ABG O2 Saturation 85.1 L (94-97) % VBG pCO2 59 H (37-51) mmHg VBG HCO3 30 H (24-28) mmol/L Potassium (3.5-5.1) mmol/L Chloride (98-107) mmol/L Carbon Dioxide (22-30) mmol/L BUN (7-17) mg/dL Creatinine (0.52-1.04) mg/dL POC Glucose (mg/dL) (75-99) mg/dL Plasma Lactic Acid Kyree (0.7-2.0) mmol/L AST (14-36) U/L Total Protein (6.3-8.2) g/dL Albumin (3.5-5.0) g/dL Urine Opiates Screen Detected H (NotDetected) 11/04/17 11/04/17 11/05/17 Range/Units 19:52 20:37 04:36 RBC (3.80-5.40) m/uL Hct (34.0-46.0) % MCH (25.0-35.0) pg MCHC 30.1 L (31.0-37.0) g/dL RDW 15.8 H (11.5-15.5) % ABG pH 7.19 L* (7.35-7.45) ABG pCO2 89 H* (35-45) mmHg ABG pO2 123 H (83-108) mmHg ABG HCO3 34 H (21-25) mmol/L ABG Total CO2 37 H (19-24) mmol/L ABG O2 Saturation 98.5 H (94-97) % VBG pCO2 (37-51) mmHg VBG HCO3 (24-28) mmol/L Potassium (3.5-5.1) mmol/L Chloride (98-107) mmol/L Carbon Dioxide (22-30) mmol/L BUN (7-17) mg/dL Creatinine (0.52-1.04) mg/dL POC Glucose (mg/dL) 104 H (75-99) mg/dL Plasma Lactic Acid Kyree (0.7-2.0) mmol/L AST (14-36) U/L Total Protein (6.3-8.2) g/dL Albumin (3.5-5.0) g/dL Urine Opiates Screen (NotDetected) 11/05/17 11/05/17 Range/Units 04:36 04:44 RBC (3.80-5.40) m/uL Hct (34.0-46.0) % MCH (25.0-35.0) pg MCHC (31.0-37.0) g/dL RDW (11.5-15.5) % ABG pH 7.51 H (7.35-7.45) ABG pCO2 (35-45) mmHg ABG pO2 76 L (83-108) mmHg ABG HCO3 36 H (21-25) mmol/L ABG Total CO2 37 H (19-24) mmol/L ABG O2 Saturation (94-97) % VBG pCO2 (37-51) mmHg VBG HCO3 (24-28) mmol/L Potassium (3.5-5.1) mmol/L Chloride (98-107) mmol/L Carbon Dioxide 31 H (22-30) mmol/L BUN 35 H (7-17) mg/dL Creatinine 1.10 H (0.52-1.04) mg/dL POC Glucose (mg/dL) (75-99) mg/dL Plasma Lactic Acid Kyree (0.7-2.0) mmol/L AST 13 L (14-36) U/L Total Protein 6.1 L (6.3-8.2) g/dL Albumin 3.3 L (3.5-5.0) g/dL Urine Opiates Screen (NotDetected) Microbiology - Last 24 Hours (Table) 11/04/17 20:45 Gram Stain - Preliminary Sputum Sputum Culture - Preliminary Thrombosis Risk Factor Assmnt - DVT/VTE Prophylaxis DVT/VTE Prophylaxis: Pharmacologic Prophylaxis ordered - Choose All That Apply Any of the Below Risk Factors Present?: Yes Each Factor Represents 1 point: Abnormal pulmonary function (COPD), Medical pt on bed rest, Obesity (BMI >25), Serious lung disease incl. pneumonia (< 1month) Each Risk Factor Represents 2 Points: Age 61-74 years, Patient confined to bed Thrombosis Risk Factor Assessment Total Risk Factor Score: 8 Thrombosis Risk Factor Assessment Level: High Risk Assessment and Plan Assessment: Acute hypoxic and hypercapnic respiratory failure secondary to benign overdose. Currently on mechanical ventilator Heroin Overdose Bibasilar infiltrates. Acute kidney injury most likely prerenal improved Hypertension uncontrolled COPD/asthma. Obstructive sleep apnea on CPAP at home. On home O2 Hepatitis C Morbid obesity BMI 43.7 IV drug abuse currently on rehab Nicotine addiction DVT prophylaxis Plan: Patient be continued on supportive management with mechanical ventilator. Pulmonary is following. Continue the home medications and follow closely. Further recommendations based on the clinical course. Time with Patient: Greater than 30
[2017-11-06 04:53] LABS: Anisocytosis Slight; Basophils % (A) 0 %; Eosinophils # (A) 0.2 k/uL (0-0.7); Eosinophils % (A) 2 %; HCT 46.3 % (34.0-46.0); HGB 13.5 gm/dL (11.4-16.0); Hypochromasia Marked; Lymphocytes # (A) 0.9 k/uL (1.0-4.8); Lymphocytes % (A) 9 %; MCH 25.7 pg (25.0-35.0); MCHC 29.2 g/dL (31.0-37.0); MCV 88.1 fL (80.0-100.0); Mean Platelet Volume 7.6; Monocytes # (A) 0.6 k/uL (0-1.0); Monocytes % (A) 6 %; Neutrophils # (A) 7.9 k/uL (1.3-7.7); Neutrophils % (A) 81 %; Platelet Count 234 k/uL (150-450); RBC 5.26 m/uL (3.80-5.40); RDW 16.1 % (11.5-15.5); WBC 9.7 k/uL (3.8-10.6)
[2017-11-06 05:10] LABS: Calcium 8.6 mg/dL (8.4-10.2); Magnesium 2.2 mg/dL (1.6-2.3); Phosphorus 4.4 mg/dL (2.5-4.5); Potassium 4.5 mmol/L (3.5-5.1)
--- NOTE | 2017-11-06 07:10 | XR ---
EXAMINATION TYPE: XR chest 1V DATE OF EXAM: 11/06/2017 HISTORY: intubation. REFERENCE: Previous study dated 11/05/2017. FINDINGS: The patient has been extubated. The nasogastric tube is been removed. There is worsening left basilar airspace disease. There is a left-sided effusion. Right lung is clear . The heart is mildly enlarged. IMPRESSION: WORSENING LEFT BASILAR AIRSPACE DISEASE.
[2017-11-06] MEDS: IPRATROPIUM-ALBUTEROL 3 ML NEB INHALATION SCH ×4 (07:39→19:23)
[2017-11-06] MEDS: ENOXAPARIN 40 MG/0.4 ML SYRINGE SQ SCH (08:44)
[2017-11-06] MEDS ORDERED: CARVEDILOL 3.125 MG TAB PO SCH (09:00)
--- NOTE | 2017-11-06 09:28 | P.PN ---
Subjective Progress Note Date: 11/06/17 Principal diagnosis: Respiratory failure secondary to narcotic overdose Progress note dated 11/06/2017 62-year-old female who was brought in by ambulance. She was very poorly responsive and was thought to have a heroin overdose. Narcan was attempted in the emergency room but she does not really wake up. Despite that, and the side effect that she could not protect airway, the ER doctor was concerned enough to intubate the patient to protect the airway. Yesterday, she was extubated. Doing much better today. Chest x-ray potentially shows a right lower lobe infiltrate and some atelectasis or infiltrate at the left base. She may have aspirated. The patient is still a little bit sleepy but does arouse appropriately. Otherwise stable. Just on some nasal O2 in a couple liters. Has a history of asthma as well as hypertension. She apparently is on amlodipine vitamin D losartan Lasix Coreg Symbicort and albuterol at home. No ALLERGIES reported. The patient can be transferred out of the ICU today. I do recommend a psychiatric consult and also a sitter. Objective - Vital Signs Vital signs: Vital Signs Temp 98.2 F 11/06/17 00:00 Pulse 94 11/06/17 09:00 Resp 22 11/06/17 09:00 BP 114/81 11/06/17 09:00 Pulse Ox 93 L 11/06/17 07:00 Intake & Output 11/05/17 11/06/17 11/06/17 18:59 06:59 18:59 Intake Total 376.829 240 20 Output Total 1195 550 130 Balance -818.171 -310 -110 Weight 130.4 kg 125.8 kg Intake: IV 220 240 20 Sodium Chloride 0.9% 1, 220 240 20 000 ml @ 20 mls/hr IV . Q24H [facility] Rx#:[id number] Intake, IV Titration 136.829 Amount Propofol 1,000 mg In 136.829 Empty Bag 1 bag @ 40 MCG/ KG/MIN 31.57 mls/hr IV . Q3H11M [facility] Rx#:[id number] Tube Feeding 20 Output: Urine 1095 550 130 Emesis 100 Other: Voiding Method Indwelling Catheter Indwelling Catheter Indwelling Catheter # Voids 80 # Bowel Movements 1 - Exam No acute distress, oriented 3. Nasal O2 in place. HEENT examination is grossly unremarkable. Mucous membranes are moist. No oral lesions. Neck supple. Full range of motion. No adenopathy thyromegaly or neck vein distention. Cardiovascular examination reveals regular rhythm rate. S1-S2 normal. No S3 or S4. No discernible murmur noted. Heart sounds are distant. Lungs reveal coarse bilateral rhonchi. Breath sounds are equal. No wheezes. Abdomen soft, bowel sounds are heard. No masses or tenderness. Abdomen is obese. Extremities are intact. No cyanosis clubbing or edema. Skin is without rash or lesion. Neurologic examination is brief but nonfocal. - Labs CBC & Chem 7: 11/06/17 04:29 11/06/17 04:29 Labs: Abnormal Lab Results - Last 24 Hours (Table) 11/05/17 11/06/17 11/06/17 Range/Units 13:54 04:29 04:29 Hct 46.3 H (34.0-46.0) % MCHC 29.2 L (31.0-37.0) g/dL RDW 16.1 H (11.5-15.5) % Neutrophils # 7.9 H (1.3-7.7) k/uL Lymphocytes # 0.9 L (1.0-4.8) k/uL ABG pH 7.32 L (7.35-7.45) ABG pCO2 70 H* (35-45) mmHg ABG pO2 81 L (83-108) mmHg ABG HCO3 36 H (21-25) mmol/L ABG Total CO2 38 H (19-24) mmol/L Carbon Dioxide 34 H (22-30) mmol/L BUN 23 H (7-17) mg/dL Glucose 145 H (74-99) mg/dL Assessment and Plan Assessment: Assessment Status post overdose on heroin with hypoxemic and hypercapnic respiratory failure, status post intubation and mechanical ventilation Status post extubation from mechanical ventilation on November 05. History of hypertension History of COPD/asthma History of IV drug abuse and opiate abuse as well as prescription drug abuse and Obesity History of ongoing tobacco use with nicotine addiction Plan: Plan dated 11/04/2017 The patient appears stable. The patient's propofol will be discontinued. We' ll see if we can't wake the patient up and towards weaning and extubation. Current blood gases show a mild metabolic alkalosis. She is on saline IV at 20 mL an hour. Additional recommendations and suggestions are forthcoming. We'll continue to follow. Labs x-rays a medications are reviewed. Labs look pretty reasonable. Chest x-ray may show some minimal infiltrate or atelectasis at the bases left greater than right. May relate to aspiration. Plan dated 11/06/2017 The patient was extubated yesterday from mechanical ventilation. She seemed be doing relatively stable this time. Appetite still a bit of lethargy noted. The patient can be transferred out to the general medical floor. She needs a psychiatric evaluation and also a sitter. Labs x-rays a medications are all reviewed. Diet can be advanced. We can resume her home medications. Critical care time 33 minutes Time with Patient: Greater than 30
[2017-11-06 09:34] LABS: ABG PCO2 70 mmHg (35-45)
[2017-11-06] MEDS: amLODIPine 5 MG TAB PO SCH (10:05)
[2017-11-06] MEDS: CARVEDILOL 3.125 MG TAB PO SCH (10:06)
[2017-11-06] MEDS: FUROSEMIDE 40 MG TAB PO SCH (10:06)
--- NOTE | 2017-11-06 14:25 | P.PN ---
Progress Note - Text Progress Note Date: 11/06/17 I attempted to see the patient today to do a psychiatric consultation and the patient stated that she did not want to answer my questions and requested that I come back another time. When I asked the patient why she was in the hospital she said she didn't know what it happened. While I reviewed the chart [facility] triage nurse notes that the patient was checking into [facility] and prior to going there had taken 3 packs of heroin. I will return tomorrow to attempt to do a psychiatric evaluation on this patient.
[2017-11-06] MEDS: SYMBICORT 160-4.5 MCG INHALER INHALATION SCH (19:23)
[2017-11-06] MEDS: AMOXIC-POT CLAV 875-125MG 1 EACH TAB PO SCH (20:10)
[2017-11-06] MEDS: SODIUM CHLORIDE 0.9% 1,000 ML IV SCH ×2 (20:11)
--- NOTE | 2017-11-07 00:23 | P.PN ---
Subjective Progress Note Date: 11/06/17 Principal diagnosis: Acute hypoxic respiratory failure secondary to Overdose Patient is a 62-year-old female with a known history of asthma/COPD, hypertension, obstructive sleep apnea on CPAP and home O2 at night 3-4 L and hepatitis C was brought to the hospital via ambulance as the patient was unresponsive and overdosed. Patient was given Narcan in the ER. Patient has been sleepy and falling of and subsequently intubated in the ER for airway protection. Currently on mechanical ventilation. Propofol drip has been discontinued and patient is waking up but still drowsy and unable to provide any history at this time. Complete review of systems could not be obtained from the patient EKG showed sinus rhythm with atrial complexes Chest x-ray negative for pneumothorax. Dancer based just now the left mid and lower lung parenchyma which could represent prominent left pleural effusion with prominent volume of passive atelectasis with concurrent bronchopneumonia possible. Prominently enlarged cardiac silhouette. CT head showed no acute process 11/06/2017 Patient was extubated yesterday and is currently in a play stable. Saturating well on nausea cannula. Chest x-ray showed worsening left basilar infiltrate. Started antibiotic the form of Augmentin. No fever no chills. No commerce of chest pain. No nausea vomiting or abdominal pain. Tolerating oral diet. All other review of systems negative except the above Current medications reviewed Active Medications Generic Name Dose Route Start Last Admin Trade Name Freq PRN Reason Stop Dose Admin Albuterol/Ipratropium 3 ml 11/04/17 20:00 11/06/17 19:23 Duoneb 0.5 Mg-3 Mg/3 Ml Soln INHALATION 3 ml RT-QID [facility] Administration Amlodipine Besylate 5 mg 11/05/17 11:00 11/06/17 10:05 Norvasc PO Not Given DAILY [facility] Amoxicillin/Clavulanate Potassium 1 each 11/06/17 21:00 11/06/17 20:10 Augmentin 875-125 PO 1 each Q12HR [facility] Administration Budesonide/Formoterol Fumarate 2 puff 11/06/17 20:00 11/06/17 19:23 Symbicort 160-4.5 Mcg Inhaler INHALATION 2 puff RT-BID [facility] Administration Carvedilol 3.125 mg 11/05/17 13:00 11/06/17 10:06 Coreg PO Not Given DAILY [facility] Enoxaparin Sodium 40 mg 11/05/17 09:00 11/06/17 08:44 Lovenox SQ 40 mg DAILY [facility] Administration Furosemide 40 mg 11/05/17 13:00 11/06/17 10:06 Lasix PO Not Given DAILY [facility] Sodium Chloride 1,000 mls @ 20 mls/hr 11/04/17 22:00 11/06/17 20:11 Saline 0.9% IV Not Given .Q24H [facility] Naloxone HCl 0.2 mg 11/04/17 19:03 Narcan IV Q2M PRN Opioid Reversal Objective - Vital Signs Vital signs: Vital Signs Temp 98.2 F 11/06/17 00:00 Pulse 85 11/06/17 10:00 Resp 25 H 11/06/17 10:00 BP 104/71 11/06/17 10:00 Pulse Ox 93 L 11/06/17 07:00 Intake & Output 11/05/17 11/06/17 11/06/17 18:59 06:59 18:59 Intake Total 376.829 240 20 Output Total 1195 550 190 Balance -818.171 -310 -170 Weight 130.4 kg 125.8 kg Intake: IV 220 240 20 Sodium Chloride 0.9% 1, 220 240 20 000 ml @ 20 mls/hr IV . Q24H [facility] Rx#:[id number] Intake, IV Titration 136.829 Amount Propofol 1,000 mg In 136.829 Empty Bag 1 bag @ 40 MCG/ KG/MIN 31.57 mls/hr IV . Q3H11M [facility] Rx#:[id number] Tube Feeding 20 Output: Urine 1095 550 190 Emesis 100 Other: Voiding Method Indwelling Catheter Indwelling Catheter Indwelling Catheter # Voids 2 # Bowel Movements 1 - Exam PHYSICAL EXAMINATION: Patient is lying in the bed comfortably, no acute distress, awake alert and oriented.. HEENT: Normocephalic. Neck is supple. Pupils reactive. Nostrils clear. Oral cavity is moist. Ears reveal no drainage. Neck reveals no JVD, carotid bruits, or thyromegaly. CHEST EXAMINATION: Trachea is central. Symmetrical expansion. Bilateral diffuse rhonchi and crackles. CARDIAC: Normal S1, S2 with no gallops. No murmurs ABDOMEN: Soft. Bowel sounds normal. No organomegaly. No abdominal bruits. Extremities: reveal no edema. No clubbing or cyanosis Neurologically awake, alert, oriented x3 with well-coordinated movements. No focal deficits noted Skin: No rash or skin lesions. Psychiatric: [id number]. Nonsuicidal Musculoskeletal: No joint swelling or deformity. Normal range of motion. - Labs CBC & Chem 7: 11/06/17 04:29 11/06/17 04:29 Labs: Abnormal Lab Results - Last 24 Hours (Table) 11/05/17 11/06/17 11/06/17 Range/Units 13:54 04:29 04:29 Hct 46.3 H (34.0-46.0) % MCHC 29.2 L (31.0-37.0) g/dL RDW 16.1 H (11.5-15.5) % Neutrophils # 7.9 H (1.3-7.7) k/uL Lymphocytes # 0.9 L (1.0-4.8) k/uL ABG pCO2 70 H* (35-45) mmHg Carbon Dioxide 34 H (22-30) mmol/L BUN 23 H (7-17) mg/dL Glucose 145 H (74-99) mg/dL Microbiology - Last 24 Hours (Table) 11/04/17 20:45 Gram Stain - Final Sputum Sputum Culture - Final Assessment and Plan Assessment: Acute hypoxic and hypercapnic respiratory failure secondary to Heroin overdose. Status post mechanical ventilator Heroin Overdose Bibasilar infiltrates L>R possible aspiration pneumonia. Acute kidney injury most likely prerenal improved Hypertension uncontrolled COPD/asthma. Obstructive sleep apnea on CPAP at home. On home O2 Hepatitis C Morbid obesity BMI 43.7 Possible obstructive sleep apnea IV drug abuse currently on rehab Nicotine addiction DVT prophylaxis Plan: Patient be is extubated. Currently transferred to general medical floor. Continue with the oxygen therapy. Continue with antibiotics and breathing treatments. Pulmonary is following. Continue the home medications and follow closely. Further recommendations based on the clinical course. Time with Patient: Greater than 30
[2017-11-07] MEDS: SYMBICORT 160-4.5 MCG INHALER INHALATION SCH ×2 (07:32→20:40)
[2017-11-07] MEDS: IPRATROPIUM-ALBUTEROL 3 ML NEB INHALATION SCH ×4 (07:32→20:40)
[2017-11-07] MEDS: ENOXAPARIN 40 MG/0.4 ML SYRINGE SQ SCH (07:37)
[2017-11-07] MEDS: AMOXIC-POT CLAV 875-125MG 1 EACH TAB PO SCH ×2 (07:37→20:55)
[2017-11-07] MEDS: CARVEDILOL 3.125 MG TAB PO SCH (07:37)
[2017-11-07] MEDS: amLODIPine 5 MG TAB PO SCH (07:37)
[2017-11-07] MEDS: FUROSEMIDE 40 MG TAB PO SCH (07:37)
[2017-11-07 08:55] VITALS: BMI 42.1
[2017-11-07 10:12] LABS: Anisocytosis Slight; Basophils % (A) 0 %; Eosinophils % (A) 1 %; HCT 46.9 % (34.0-46.0); HGB 13.4 gm/dL (11.4-16.0); Hypochromasia Marked; Lymphocytes % (A) 13 %; MCH 25.2 pg (25.0-35.0); MCHC 28.6 g/dL (31.0-37.0); MCV 88.2 fL (80.0-100.0); Mean Platelet Volume 8.3; Monocytes # (A) 0.8 k/uL (0-1.0); Monocytes % (A) 10 %; Neutrophils # (A) 5.8 k/uL (1.3-7.7); Neutrophils % (A) 75 %; Platelet Count 249 k/uL (150-450); RBC 5.32 m/uL (3.80-5.40); WBC 7.7 k/uL (3.8-10.6)
[2017-11-07 10:34] LABS: Calcium 8.9 mg/dL (8.4-10.2); Magnesium 2.1 mg/dL (1.6-2.3); Phosphorus 3.3 mg/dL (2.5-4.5); Potassium 4.5 mmol/L (3.5-5.1)
--- NOTE | 2017-11-07 12:18 | P.CN ---
Psychiatric Consult - . Consult date: 11/07/17 Consult:: 11/07/17 12:05 Identification: Patient is a 62-year-old female who was brought to the emergency room by EMS after she used heroin prior to checking into [facility] and was unresponsive Reason for Consult: Psychiatric evaluation History of Present Illness: Patient's chart was reviewed, I attempted to see the patient yesterday and she was not willing to speak with me, the patient was seen today and interviewed in her room she was alone no family members were present. Patient states that she had been checking into [facility] and snorted heroin because it was "the last time I could use it". She reports that this was not a suicide attempt and states that she has never attempted suicide in the past. Patient states that she is unaware of what happened after she used the heroin. Patient states that she lives in [place]. Patient states that she has no prior psychiatric treatment history and denies that she's ever made any suicide attempts or had suicidal ideation. She states that she has never been treated for depression, papito, psychosis or anxiety. Patient states that she was at [facility] a few years ago at her son helped arrange for intake appointment for this admission to [facility]. She states that she wants to go back there. Patient does not endorse a history of depressive symptoms, manic symptoms or psychotic symptoms. Patient states that she has never been seen by a psychiatrist and has never been placed on any medications for any psychiatric diagnoses. Patient was superficially cooperative during the interview today, becoming irritable with some of my questions, and gave very brief and non-elaborative answers to most of the questions that I asked. She stated that she wanted to return to [facility] and wanted to be arranged for when she leaves here so she doesn't have to drive back home and come back here again. Patient was unable to tell me other than that she wanted to use for the last time before she went into [facility] why she thought she could use heroin right prior to her admission there. Past Psychiatric History: Patient denies any inpatient psychiatric treatment any outpatient psychiatric care. She states she was at [facility] several years ago for heroin use Past Medical/Surgical History: Patient has a history of asthma, COPD, sleep apnea, hypertension and as noted in the chart that she has hep C positive. Patient states that she does not have a CPAP machine at home and does use oxygen 24 hours a day. Per the chart the patient has a history of hepatitis C Social History: Patient currently is living with her son and she states she has 4 children. She states she has never been and has not worked in years due to being on disability due to her COPD. Patient denies any abuse history. Patient was not cooperative with obtaining further social history Substance Use History: Patient states that she has not used any alcohol currently or in the past and states she is used heroin since she was 26 or 31 and has used it IV in the past currently is snorting it. She denies any other drug use history. Patient states she does continue to use tobacco products. Legal History: Patient denies legal history Mental status: Appearance/Attitude: Patient is lying in her hospital bed, makes only intermittent eye contact, and is superficially cooperative Behavior: Patient does not exhibit any psychomotor agitation or retardation Speech/Language: Patient's speech is of normal volume and rhythm, she is coherent Thought Process: Patient's responses to most questions were very brief and non- elaborative, with encouragement she would become irritable and not further elaborate no evidence of loose association or flight of ideas Thought Content: Patient denied auditory or visual hallucination and no delusions or paranoid ideation were elicited. Patient states she doesn't know how she ended up in the hospital she states that she was getting ready to enter [facility] but used heroin by snorting it because this will be the last time she could use it. Patient does not recall what happened after that or how she ended up in the hospital. Suicidal/Homicidal Ideation: Patient denies any current suicidal or homicidal ideation and states that she did not start the heroin in an attempt to commit suicide Sensorium/Cognition: Patient is alert and oriented to person, situation and further cognitive testing was not performed as the patient was not cooperative with my questioning Mood/Affect: Patient's mood is irritable and her affect is blunted Insight/Judgment: Patient's insight and judgment are fair Assessment: This was a difficult assessment as the patient was not cooperative yesterday and asked me to return in today she was slightly more cooperative however not elaborative and responses to questions and became increasingly irritable with further questioning. Patient denies that she's ever had a prior psychiatric admission, denies prior suicide attempts and states she's never been treated for any psychiatric disorders. She states that she has been using heroin since she was 26 or 31 and in the past used IV currently stating that she snorts it. She states that she used right prior to entering [facility] because it was the last time she was going to be able to do so. Patient states that she's been there once in the past. Patient is currently living with her son and states that he is the one who arranged for her intake appointment at [facility], she lives with him in [place]. Patient states that she wants to return to [facility] and once it arrange so that she can leave here and enter there without having to drive home and then back again. Patient has no evidence of any depressive symptoms, psychotic symptoms and there is no evidence of any anxiety or manic symptoms. Diagnosis: Heroin use disorder Plan: Patient does not require inpatient psychiatric admission as there is no evidence of a psychotic disorder, depressive disorder, manic symptoms and the patient denies that this was a suicide attempt and has no prior history of suicide attempts or psychiatric treatment. Patient has been using heroin for the last 30 years, has a history of using IV and currently is snorting it. She states that she is interested in returning to [facility], and I left a message with social work regarding her request. Patient has been living with her son in [place] and he arranged for her admission to [facility]. I discussed with the patient that she cannot be using any drugs or alcohol prior to her admission to [facility]. Patient was encouraged to enter [facility] , encouraged to remain sober prior to her admission there. I will sign off the case if there are any further questions or concerns please don't hesitate to contact me.
[2017-11-07] MEDS: SODIUM CHLORIDE 0.9% 1,000 ML IV SCH (21:06)
--- NOTE | 2017-11-08 01:19 | P.PN ---
Subjective Progress Note Date: 11/07/17 Principal diagnosis: Acute hypoxic respiratory failure secondary to Overdose Patient is a 62-year-old female with a known history of asthma/COPD, hypertension, obstructive sleep apnea on CPAP and home O2 at night 3-4 L and hepatitis C was brought to the hospital via ambulance as the patient was unresponsive and overdosed. Patient was given Narcan in the ER. Patient has been sleepy and falling of and subsequently intubated in the ER for airway protection. Currently on mechanical ventilation. Propofol drip has been discontinued and patient is waking up but still drowsy and unable to provide any history at this time. Complete review of systems could not be obtained from the patient EKG showed sinus rhythm with atrial complexes Chest x-ray negative for pneumothorax. Dancer based just now the left mid and lower lung parenchyma which could represent prominent left pleural effusion with prominent volume of passive atelectasis with concurrent bronchopneumonia possible. Prominently enlarged cardiac silhouette. CT head showed no acute process 11/06/2017 Patient was extubated yesterday and is currently in a play stable. Saturating well on nausea cannula. Chest x-ray showed worsening left basilar infiltrate. Started antibiotic the form of Augmentin. No fever no chills. No commerce of chest pain. No nausea vomiting or abdominal pain. Tolerating oral diet. 11/07/2017 Patient is improving clinically slowly. With the status is improving otherwise. No complaints chest pain or worsening shortness of breath. Continued on breathing treatments and antibiotics. No other acute overnight issues. Anticipate discharge in next 24 hours. All other review of systems negative except the above Current medications reviewed Active Medications Generic Name Dose Route Start Last Admin Trade Name Freq PRN Reason Stop Dose Admin Albuterol/Ipratropium 3 ml 11/04/17 20:00 11/06/17 19:23 Duoneb 0.5 Mg-3 Mg/3 Ml Soln INHALATION 3 ml RT-QID LESLEY Administration Amlodipine Besylate 5 mg 11/05/17 11:00 11/06/17 10:05 Norvasc PO Not Given DAILY LESLEY Amoxicillin/Clavulanate Potassium 1 each 11/06/17 21:00 11/06/17 20:10 Augmentin 875-125 PO 1 each Q12HR LESLEY Administration Budesonide/Formoterol Fumarate 2 puff 11/06/17 20:00 05/06/18 19:23 Symbicort 160-4.5 Mcg Inhaler INHALATION 2 puff RT-BID LESLEY Administration Carvedilol 3.125 mg 11/05/17 13:00 11/06/17 10:06 Coreg PO Not Given DAILY LESLEY Enoxaparin Sodium 40 mg 11/05/17 09:00 11/06/17 08:44 Lovenox SQ 40 mg DAILY LESLEY Administration Furosemide 40 mg 11/05/17 13:00 11/06/17 10:06 Lasix PO Not Given DAILY [facility] Sodium Chloride 1,000 mls @ 20 mls/hr 11/04/17 22:00 11/06/17 20:11 Saline 0.9% IV Not Given .Q24H LESLEY Naloxone HCl 0.2 mg 11/04/17 19:03 Narcan IV Q2M PRN Opioid Reversal Objective - Vital Signs Vital signs: Vital Signs Temp 99.1 F 11/07/17 14:53 Pulse 91 11/07/17 20:54 Resp 18 11/07/17 14:53 BP 126/94 11/07/17 14:53 Pulse Ox 98 11/07/17 15:31 Intake & Output 11/07/17 11/07/17 11/08/17 06:59 18:59 06:59 Weight 122.5 kg Other: Voiding Method Toilet # Voids 4 1 # Bowel Movements 1 1 - Exam PHYSICAL EXAMINATION: Patient is lying in the bed comfortably, no acute distress, awake alert and oriented.. HEENT: Normocephalic. Neck is supple. Pupils reactive. Nostrils clear. Oral cavity is moist. Ears reveal no drainage. Neck reveals no JVD, carotid bruits, or thyromegaly. CHEST EXAMINATION: Trachea is central. Symmetrical expansion. Bilateral slow air entry and no wheezing . Nonlabored breathing. CARDIAC: Normal S1, S2 with no gallops. No murmurs ABDOMEN: Soft. Bowel sounds normal. No organomegaly. No abdominal bruits. Extremities: reveal no edema. No clubbing or cyanosis Neurologically awake, alert, oriented x3 with well-coordinated movements. No focal deficits noted Skin: No rash or skin lesions. Psychiatric: [id number]. Nonsuicidal Musculoskeletal: No joint swelling or deformity. Normal range of motion. - Labs CBC & Chem 7: 11/07/17 08:42 11/07/17 08:42 Labs: Abnormal Lab Results - Last 24 Hours (Table) 11/07/17 11/07/17 Range/Units 08:42 08:42 Hct 46.9 H (34.0-46.0) % MCHC 28.6 L (31.0-37.0) g/dL RDW 16.0 H (11.5-15.5) % Chloride 97 L (98-107) mmol/L Carbon Dioxide 37 H (22-30) mmol/L Glucose 103 H (74-99) mg/dL Assessment and Plan Assessment: Acute hypoxic and hypercapnic respiratory failure secondary to Heroin overdose. Status post mechanical ventilator Heroin Overdose Bibasilar infiltrates L>R possible aspiration pneumonia. Acute kidney injury most likely prerenal improved Hypertension uncontrolled COPD/asthma. Obstructive sleep apnea on CPAP at home. On home O2 Hepatitis C Morbid obesity BMI 43.7 Possible obstructive sleep apnea IV drug abuse currently on rehab Nicotine addiction DVT prophylaxis Plan: Patient was extubated. Currently transferred to general medical floor. Continue with the oxygen therapy. Continue with antibiotics and breathing treatments. Pulmonary is following. Continue the home medications and follow closely. Anticipate discharge home versus rehab. Further recommendations based on the clinical course. Time with Patient: Greater than 30
[2017-11-08] MEDS: IPRATROPIUM-ALBUTEROL 3 ML NEB INHALATION SCH ×3 (08:12→11:48)
[2017-11-08] MEDS: SYMBICORT 160-4.5 MCG INHALER INHALATION SCH (08:12)
[2017-11-08 08:24] LABS: Anisocytosis Slight; Basophils % (A) 0 %; Eosinophils # (A) 0.1 k/uL (0-0.7); Eosinophils % (A) 1 %; HCT 47.9 % (34.0-46.0); Hypochromasia Marked; Lymphocytes # (A) 1.1 k/uL (1.0-4.8); Lymphocytes % (A) 15 %; MCH 25.3 pg (25.0-35.0); MCHC 29.3 g/dL (31.0-37.0); MCV 86.5 fL (80.0-100.0); Mean Platelet Volume 7.6; Monocytes # (A) 0.7 k/uL (0-1.0); Monocytes % (A) 9 %; Neutrophils # (A) 5.6 k/uL (1.3-7.7); Neutrophils % (A) 74 %; Platelet Count 264 k/uL (150-450); RBC 5.54 m/uL (3.80-5.40); WBC 7.6 k/uL (3.8-10.6)
[2017-11-08 08:29] LABS: Blood Urea Nitrogen 13 mg/dL (7-17); Calcium 8.7 mg/dL (8.4-10.2); Chloride 97 mmol/L (98-107); Glucose 88 mg/dL (74-99); Phosphorus 3.1 mg/dL (2.5-4.5); Potassium 5.1 mmol/L (3.5-5.1); Sodium 144 mmol/L (137-145)
[2017-11-08 08:36] LABS: Anion Gap 9 mmol/L
[2017-11-08 08:37] LABS: Carbon Dioxide 38 mmol/L (22-30)
[2017-11-08] MEDS: AMOXIC-POT CLAV 875-125MG 1 EACH TAB PO SCH (08:54)
[2017-11-08] MEDS: amLODIPine 5 MG TAB PO SCH (08:54)
[2017-11-08] MEDS: CARVEDILOL 3.125 MG TAB PO SCH (08:54)
[2017-11-08] MEDS: ENOXAPARIN 40 MG/0.4 ML SYRINGE SQ SCH (08:54)
[2017-11-08] MEDS: FUROSEMIDE 40 MG TAB PO SCH (08:54)
[2017-11-08 14:18] VITALS: BP 127/82; PULSE 76; RESP 16; TEMP 99.3
--- NOTE | 2017-11-08 18:24 | DS ---
DISCHARGE SUMMARY DATE OF SERVICE: 11/08/2017 FINAL DIAGNOSES: 1. Acute hypoxic hypercapnic respiratory failure secondary to heroin overdosage, status post mechanical ventilation. 2. Bibasilar infiltrate, possibly aspiration pneumonia. 3. Acute kidney injury, possibly prerenal, improved. 4. Hypertension. 5. Chronic obstructive pulmonary disease, asthma. 6. Obstructive sleep apnea. 7. Hepatitis C. DISCHARGE DISPOSITION: The patient will be discharged in stable condition with guarded prognosis. HISTORY OF PRESENT ILLNESS: This 62-year-old woman with a past medical history of multiple medical problems was admitted with acute hypoxic hypercapnic respiratory failure, possibly secondary to heroin overdosage. The patient was mechanically ventilated and treated in conjunction with Pulmonary. The patient got antibiotics also. Patient improved significantly. Patient will be discharged in stable condition with guarded prognosis. Patient was also seen by Pulmonary during the hospitalization. On exam, vitals are stable. CARDIOVASCULAR SYSTEM: S1, S2 muffled. RESPIRATORY SYSTEM: Breath sounds diminished at the bases. A few rhythm. ABDOMEN: Soft. NERVOUS SYSTEM: No focal deficit. DISCHARGE ADVICE AND MEDICATIONS: 1. Diet is cardiac. 2. Activity limited until followup. 3. Follow up with primary physician in 2 to 3 days. 4. Follow up with [facility] as recommended. 5. Ventolin 2 puffs q.i.d. 6. Nebulizer p.r.n. 7. Norvasc 5 mg p.o. daily. 8. Augmentin 875 mg p.o. b.i.d. for 5 days. 9. Symbicort 160/4.5 two puffs b.i.d. 10.Coreg 3.125 mg p.o. daily. 11.Lasix 40 mg p.o. daily. 12.Cozaar 25 mg p.o. daily. 13.Vitamin B complex 1 p.o. daily. 14.Follow-up labs CBC and BMP in 2 to 3 days. Once again, the patient will be discharged in stable condition with guarded prognosis. MMODL / IJN: [id number] /
== END 2017-11-08 15:55 | disposition designated cancer center or children's hospital (05) | DRG 917 ==
LOC: EC 15:26 → 6ICU 19:05 → 4MS4W 11-06 10:36
PROVIDERS: ADMIT Hospitalist; ATTEND Hospitalist
PROC: 5A1935Z Respiratory Ventilation, Less than 24 Consecutive Hours (ICD-10-PCS; principal; 2017-11-04)
PROC: 0BH18EZ Insertion of Endotracheal Airway into Trachea, Via Natural or Artificial Opening Endoscopic (ICD-10-PCS; 2017-11-04)
PROC: 0D9670Z Drainage of Stomach with Drainage Device, Via Natural or Artificial Opening (ICD-10-PCS; 2017-11-04)
PROC: 5A09357 Assistance with Respiratory Ventilation, Less than 24 Consecutive Hours, Continuous Positive Airway Pressure (ICD-10-PCS; 2017-11-05)
PROC: 3E0G76Z Introduction of Nutritional Substance into Upper GI, Via Natural or Artificial Opening (ICD-10-PCS; 2017-11-05)
DX: T40.1X1A Poisoning by heroin, accidental (unintentional), initial encounter (principal); J96.02 Acute respiratory failure with hypercapnia; J96.01 Acute respiratory failure with hypoxia; J69.0 Pneumonitis due to inhalation of food and vomit; N17.9 Acute kidney failure, unspecified; Z68.41 Body mass index [BMI] 40.0-44.9, adult; E87.3 Alkalosis; E66.01 Morbid (severe) obesity due to excess calories; J44.9 Chronic obstructive pulmonary disease, unspecified; I10 Essential (primary) hypertension; G47.33 Obstructive sleep apnea (adult) (pediatric); B19.20 Unspecified viral hepatitis C without hepatic coma; F11.10 Opioid abuse, uncomplicated; F41.9 Anxiety disorder, unspecified; Z99.81 Dependence on supplemental oxygen; F17.200 Nicotine dependence, unspecified, uncomplicated; Z79.51 Long term (current) use of inhaled steroids; Z79.899 Other long term (current) drug therapy; Z87.01 Personal history of pneumonia (recurrent)
CPT/HCPCS: 31500; 36415; 36600; 70450; 71045; 80048; 80053; 80306; 80320; 81025; 82803; 82805; 83520; 83605; 83735; 84100; 84484; 85025; 87070; 87205; 93005; 94002; 94003; 94640; 94660; 96361; 96375; 96376; 99291

== ENCOUNTER 2017-11-20 11:59 | Inpatient (IN) | payer OTHER ==
[2017-11-20] MEDS ORDERED: ALBUTEROL NEBULIZED 2.5 MG/3 ML INHALATION STA (12:03)
[2017-11-20] MEDS ORDERED: methylPREDNISolone SOD SUCCI 125 MG/2 ML VIAL IV STA (12:03)
[2017-11-20] MEDS ORDERED: IPRATROPIUM 0.5 MG/2.5 ML NEBU INHALATION STA (12:03)
--- NOTE | 2017-11-20 12:18 | ED ---
General Adult HPI - General Chief complaint: Shortness of Breath Stated complaint: ASHWIN/fluid retention Time Seen by Provider: 11/20/17 12:03 Source: patient, EMS, RN notes reviewed, old records reviewed Mode of arrival: EMS Limitations: no limitations - History of Present Illness Initial comments: THIS is a 65-year-old female the ER for evaluation of shortness of breath. Severe shortness of breath. Patient has COPD, having cough and congestion and increased shortness of breath weakness. No chest pain, no travel history no sick contacts. Patient currently going through rehab from heroin withdrawal - Related Data Home Medications Medication Instructions Recorded Confirmed Albuterol Nebulized (Conc) 2.5 mg INHALATION RT-Q4H 11/04/17 11/04/17 [Ventolin Nebulized (Conc)] Carvedilol [Coreg] 3.125 mg PO DAILY 11/04/17 11/04/17 Furosemide [Lasix] 40 mg PO DAILY 11/04/17 11/04/17 Losartan [Cozaar] 25 mg PO DAILY 11/04/17 11/04/17 Vitamin B Complex 1 cap PO DAILY 11/04/17 11/04/17 amLODIPine [Norvasc] 5 mg PO DAILY 11/04/17 11/04/17 Previous Rx's Medication Instructions Recorded Albuterol Inhaler [Ventolin Hfa 2 puff INHALATION RT-Q6H #1 inhaler 11/08/17 Inhaler] Amoxic-Pot Clav 875-125Mg 1 each PO Q12HR #10 tab 11/08/17 [Augmentin 875-125] Budesonide-Formot 160-4.5 Mcg 2 puff INHALATION RT-BID #1 puff 11/08/17 [Symbicort 160-4.5 Mcg Inhaler] Allergies Allergy/AdvReac Type Severity Reaction Status Date / Time No Known Allergies Allergy Verified 11/20/17 12:02 Review of Systems ROS Statement: Those systems with pertinent positive or pertinent negative responses have been documented in the HPI. ROS Other: All systems not noted in ROS Statement are negative. Past Medical History Past Medical History: Asthma, Heart Failure, COPD, Hypertension, Pneumonia, Respiratory Disorder, Sleep Apnea/CPAP/BIPAP Additional Past Medical History / Comment(s): Home O2 at night 3-4 L. HEP C positive History of Any Multi-Drug Resistant Organisms: None Reported Past Surgical History: No Surgical Hx Reported Past Anesthesia/Blood Transfusion Reactions: No Reported Reaction Past Psychological History: Anxiety, Depression Smoking Status: Current every day smoker Past Alcohol Use History: Rare Past Drug Use History: Heroin General Exam Limitations: no limitations General appearance: alert, in no apparent distress, anxious Head exam: Present: atraumatic, normocephalic, normal inspection Eye exam: Present: normal appearance, PERRL, EOMI. Absent: scleral icterus, conjunctival injection, periorbital swelling ENT exam: Present: normal exam, mucous membranes moist Neck exam: Present: normal inspection. Absent: tenderness, meningismus, lymphadenopathy Respiratory exam: Present: respiratory distress, wheezes, accessory muscle use, decreased breath sounds, prolonged expiratory. Absent: rales, rhonchi, stridor Cardiovascular Exam: Present: regular rate, normal rhythm, normal heart sounds. Absent: systolic murmur, diastolic murmur, rubs, gallop, clicks GI/Abdominal exam: Present: soft, normal bowel sounds. Absent: distended, tenderness, guarding, rebound, rigid Extremities exam: Present: normal inspection, full ROM, normal capillary refill. Absent: tenderness, pedal edema, joint swelling, calf tenderness Back exam: Present: normal inspection Neurological exam: Present: alert, oriented X3, CN II-XII intact Psychiatric exam: Present: normal affect, normal mood Skin exam: Present: warm, dry, intact, normal color. Absent: rash Course Vital Signs 11/20/17 11/20/17 11/20/17 12:02 12:55 13:06 Temperature 98.1 F Pulse Rate 83 79 83 Respiratory 28 H 28 H Rate Blood Pressure 139/89 163/90 O2 Sat by Pulse 97 98 Oximetry 11/20/17 11/20/17 11/20/17 13:26 13:40 14:01 Temperature Pulse Rate 86 88 88 Respiratory Rate Blood Pressure O2 Sat by Pulse Oximetry 11/20/17 14:19 Temperature Pulse Rate 89 Respiratory 30 H Rate Blood Pressure O2 Sat by Pulse 74 L Oximetry - Reevaluation(s) Reevaluation #1: 11/20/17 14:47 Patient currently without chest pain or shortness of breath Reevaluation #2: 11/20/17 14:47 Patient given a laboratory pulse ox on her normal 2 L, pulse ox went down to 71 EKG Findings - EKG Comments: EKG Findings:: EKG shows normal sinus rhythm 79, ND 140, QRS 82, QTc 434 Medical Decision Making - Medical Decision Making 62 female the ER for evaluation, continued shortness of breath cough congestion superimposed pneumonia - Lab Data Result diagrams: 11/20/17 12:15 11/20/17 12:15 Lab Results 11/20/17 11/20/17 11/20/17 Range/Units 12:15 12:15 12:15 WBC 7.4 (3.8-10.6) k/uL RBC 5.26 (3.80-5.40) m/uL Hgb 13.5 (11.4-16.0) gm/dL Hct 47.1 H (34.0-46.0) % MCV 89.4 (80.0-100.0) fL MCH 25.7 (25.0-35.0) pg MCHC 28.7 L (31.0-37.0) g/dL RDW 16.2 H (11.5-15.5) % Plt Count 260 (150-450) k/uL Neutrophils % 78 % Lymphocytes % 13 % Monocytes % 5 % Eosinophils % 2 % Basophils % 0 % Neutrophils # 5.7 (1.3-7.7) k/uL Lymphocytes # 0.9 L (1.0-4.8) k/uL Monocytes # 0.4 (0-1.0) k/uL Eosinophils # 0.2 (0-0.7) k/uL Basophils # 0.0 (0-0.2) k/uL Hypochromasia Marked Anisocytosis Slight PT (9.0-12.0) sec INR (<1.2) APTT (22.0-30.0) sec Sodium 145 (137-145) mmol/L Potassium 5.0 (3.5-5.1) mmol/L Chloride 94 L (98-107) mmol/L Carbon Dioxide 41 H* (22-30) mmol/L Anion Gap 10 mmol/L BUN 11 (7-17) mg/dL Creatinine 0.80 (0.52-1.04) mg/dL Est GFR (CKD-EPI)AfAm >90 (>60 ml/min/1.73 sqM) Est GFR (CKD-EPI)NonAf 80 (>60 ml/min/1.73 sqM) Glucose 87 (74-99) mg/dL Calcium 8.9 (8.4-10.2) mg/dL Magnesium 2.0 (1.6-2.3) mg/dL Total Bilirubin 0.5 (0.2-1.3) mg/dL AST 15 (14-36) U/L ALT 27 (9-52) U/L Alkaline Phosphatase 58 (38-126) U/L Total Creatine Kinase 51 (30-135) U/L CK-MB (CK-2) 2.1 (0.0-2.4) ng/mL CK-MB (CK-2) Rel Index 4.1 Troponin I <0.012 (0.000-0.034) ng/mL NT-Pro-B Natriuret Pep pg/mL Total Protein 6.9 (6.3-8.2) g/dL Albumin 3.8 (3.5-5.0) g/dL 11/20/17 11/20/17 Range/Units 12:15 12:15 WBC (3.8-10.6) k/uL RBC (3.80-5.40) m/uL Hgb (11.4-16.0) gm/dL Hct (34.0-46.0) % MCV (80.0-100.0) fL MCH (25.0-35.0) pg MCHC (31.0-37.0) g/dL RDW (11.5-15.5) % Plt Count (150-450) k/uL Neutrophils % % Lymphocytes % % Monocytes % % Eosinophils % % Basophils % % Neutrophils # (1.3-7.7) k/uL Lymphocytes # (1.0-4.8) k/uL Monocytes # (0-1.0) k/uL Eosinophils # (0-0.7) k/uL Basophils # (0-0.2) k/uL Hypochromasia Anisocytosis PT 10.4 (9.0-12.0) sec INR 1.1 (<1.2) APTT 26.3 (22.0-30.0) sec Sodium (137-145) mmol/L Potassium (3.5-5.1) mmol/L Chloride (98-107) mmol/L Carbon Dioxide (22-30) mmol/L Anion Gap mmol/L BUN (7-17) mg/dL Creatinine (0.52-1.04) mg/dL Est GFR (CKD-EPI)AfAm (>60 ml/min/1.73 sqM) Est GFR (CKD-EPI)NonAf (>60 ml/min/1.73 sqM) Glucose (74-99) mg/dL Calcium (8.4-10.2) mg/dL Magnesium (1.6-2.3) mg/dL Total Bilirubin (0.2-1.3) mg/dL AST (14-36) U/L ALT (9-52) U/L Alkaline Phosphatase (38-126) U/L Total Creatine Kinase (30-135) U/L CK-MB (CK-2) (0.0-2.4) ng/mL CK-MB (CK-2) Rel Index Troponin I (0.000-0.034) ng/mL NT-Pro-B Natriuret Pep 1270 pg/mL Total Protein (6.3-8.2) g/dL Albumin (3.5-5.0) g/dL - Radiology Data Radiology results: report reviewed (Chest x-ray positive pneumonia), image reviewed Disposition Clinical Impression: Acute hypercapnic respiratory failure, Community acquired pneumonia, Acute exacerbation of chronic obstructive airways disease Disposition: ADMITTED IP TO THIS HOSP Condition: Fair Is patient prescribed a controlled substance at d/c from ED?: No Referrals: Nonstaff,Physician [Primary Care Provider] - 1-2 days
[2017-11-20 12:36] LABS: Anisocytosis Slight; Basophils % (A) 0 %; Eosinophils # (A) 0.2 k/uL (0-0.7); Eosinophils % (A) 2 %; HCT 47.1 % (34.0-46.0); HGB 13.5 gm/dL (11.4-16.0); Hypochromasia Marked; Lymphocytes # (A) 0.9 k/uL (1.0-4.8); Lymphocytes % (A) 13 %; MCH 25.7 pg (25.0-35.0); MCHC 28.7 g/dL (31.0-37.0); MCV 89.4 fL (80.0-100.0); Mean Platelet Volume 6.9; Monocytes # (A) 0.4 k/uL (0-1.0); Monocytes % (A) 5 %; Neutrophils # (A) 5.7 k/uL (1.3-7.7); Neutrophils % (A) 78 %; Platelet Count 260 k/uL (150-450); RBC 5.26 m/uL (3.80-5.40); RDW 16.2 % (11.5-15.5); WBC 7.4 k/uL (3.8-10.6)
[2017-11-20 12:47] LABS: ALT 27 U/L (9-52); AST 15 U/L (14-36); Albumin 3.8 g/dL (3.5-5.0); Alkaline Phosphatase 58 U/L (38-126); Blood Urea Nitrogen 11 mg/dL (7-17); Calcium 8.9 mg/dL (8.4-10.2); Chloride 94 mmol/L (98-107); Glucose 87 mg/dL (74-99); Sodium 145 mmol/L (137-145); Total Bilirubin 0.5 mg/dL (0.2-1.3); Total Protein 6.9 g/dL (6.3-8.2)
[2017-11-20 12:53] LABS: Anion Gap 10 mmol/L
--- NOTE | 2017-11-20 12:56 | XR ---
EXAMINATION TYPE: XR chest 2V DATE OF EXAM: 11/20/2017 COMPARISON: 11/06/2017 HISTORY: 62-year-old female difficulty breathing TECHNIQUE: Frontal and lateral views FINDINGS: The heart is mildly enlarged. Bilateral hilar enlargement. Mild diffuse interstitial prominence. Foca l opacity left mid to lower lung. No pleural effusion on the lateral view. IMPRESSION: 1. Cardiomegaly. 2. Focal left mid and lower lung opacity. Correlate for pneumonia. 3. Bilateral hilar enlargement could represent pulmonary arterial hypertension or underlying lymphade nopathy.
[2017-11-20 12:58] LABS: Carbon Dioxide 41 mmol/L (22-30); Creatine Kinase 51 U/L (30-135); INR 1.1 (<1.2); Partial Thromboplastin Time 26.3 sec (22.0-30.0); Prothrombin Time 10.4 sec (9.0-12.0)
[2017-11-20 13:10] LABS: Creatine Kinase MB 2.1 ng/mL (0.0-2.4); Troponin I <0.012 ng/mL (0.000-0.034)
[2017-11-20] MEDS ORDERED: PNEUMONIA PROTOCOL UTILIZED 1 EACH MISC PO PRN (14:48)
[2017-11-20] MEDS ORDERED: AZITHROMYCIN 500 MG in SODIUM CHLORIDE 0.9% 250 ML IVPB STA (14:57)
[2017-11-20] MEDS ORDERED: cefTRIAXone IN SWFI 1,000 MG/10 ML SYRINGE IVP STA (14:57)
[2017-11-20] MEDS: IPRATROPIUM-ALBUTEROL 3 ML NEB INHALATION SCH ×5 (15:31→23:38)
[2017-11-20 20:20] VITALS: BMI 43.4
[2017-11-20] MEDS ORDERED: IBUPROFEN 600 MG TAB PO PRN (21:32)
--- NOTE | 2017-11-20 22:21 | HP ---
HISTORY AND PHYSICAL DATE OF SERVICE: 11/20/2017 PRESENTING COMPLAINT: Could not breathe. HISTORY OF PRESENTING COMPLAINT: This is a 62-year-old patient, chronic stable medical conditions include hypertension, obstructive sleep apnea, hepatitis C, anxiety, depression. Continues to smoke cigarettes. Patient presents with progressive short of breath coming on over days, cough with green-yellow sputum, barely able to speak, wheezing, coughing. No fever. Able to tolerate some diet. Patient does wear oxygen at home 2 L. Quite a bit short of breath at rest, not able to speak in full sentences. REVIEW OF SYSTEMS: CONSTITUTIONAL: Tired. HEENT: none. RESPIRATORY: As above. CARDIOVASCULAR: None. GASTROINTESTINAL: None. GENITOURINARY: None. MUSCULOSKELETAL: None. DERMATOLOGICAL: None. HEMATOLOGIC: None. LYMPHATICS: None. PSYCHIATRY: Anxious. NEUROLOGICAL: None. PAST MEDICAL HISTORY: Hypertension, COPD, obstructive sleep apnea, hepatitis C, anxiety, depression, home oxygen 2 L. PAST SURGICAL HISTORY: None. SOCIAL HISTORY: The patient smokes cigarettes of variable amounts. Lives with her son. Denies alcohol. FAMILY HISTORY: Reviewed and noncontributory to presentation. HOME MEDICATION: 1. Trazodone 50 to 150 mg q.h.s. 2. Chlorpheniramine 4 mg q.4 p.r.n. 3. Ventolin HFA 2 puffs q.4 p.r.n. 4. Vitamin B complex 1 capsule p.o. daily. 5. Cozaar 25 mg p.o. daily. 6. Motrin 600 mg q.6 p.r.n. 7. Lasix 40 mg p.o. daily. 8. Coreg 3.125 p.o. daily. 9. Tylenol 650 mg q.4 p.r.n. 10.Thiamine 100 mg p.o. daily. 11.Multivitamin 1 tablet p.o. daily. ALLERGIES: None. PHYSICAL EXAMINATION: Vital signs on presentation, temperature 98.1, pulse 83, respirations 28, blood pressure 139/89, pulse ox 97% on 3 L. GENERAL APPEARANCE: Morbidly obese, BMI 43.4, lying, short of breath at rest. EYES: Pupils are normal. HEENT: External appearance of nose and ears normal. Oral cavity normal. NECK: Short, thick, JVD unable to assess. Mass not palpable. Respiratory effort increased. Accessory muscles . Patient not able to speak in full sentences. LUNGS: Poor air entry, prolonged expiration. Some basal crackles. CARDIOVASCULAR: First and second sounds. No edema. ABDOMEN: Distended, soft. Liver and spleen not palpable. LYMPHATIC: No lymph node palpable in the neck and axillae. PSYCHIATRIC: Alert and oriented x3. Mood and affect anxious appearing. NEUROLOGICAL: Pupils equal. Cranial nerves grossly intact. Power and sensation grossly intact. INVESTIGATIONS: Chest x-ray shows bilateral infiltrates and cardiomegaly. White count 7.4, hemoglobin 13.5, potassium 5.0, BUN 11, creatinine 0.80. ProBNP 1270. Troponin x1 negative. ASSESSMENT: 1. Bilateral pneumonia, suspect gram-negative organism present on admission. 2. Chronic hypoxic respiratory failure in a patient with known chronic obstructive pulmonary disease. 3. Acute hypoxic respiratory failure from chronic obstructive pulmonary disease, present on admission. 4. Morbid obesity, BMI 43.4. 5. Essential hypertension. 6. Obstructive sleep apnea. 7. Hepatitis C. 8. Anxiety and depression, not otherwise specified. PLAN: Patient is started on nebulized bronchodilators every 4 hours. Also, steroids have been added. Also add inhaled steroids and Mucinex will be added. Sputum will be sent for Gram stain and culture. Patient was given BiPAP. Nurse informed me the patient has been not keen to use it. The patient advised about smoking. Will be given a nicotine patch. Home medications are resumed. Care was discussed with the patient. MMODL / IJN: [id number] /
[2017-11-20] MEDS: guaiFENesin 600 MG TABLET.ER PO SCH (22:23)
[2017-11-20] MEDS: NICOTINE 14MG/24HR PATCH TRANSDERM SCH (22:23)
[2017-11-20] MEDS: B COMPLEX-VIT C-VIT E-ZINC 1 EACH TAB PO SCH (22:24)
[2017-11-20] MEDS: traZODone HCL 50 MG TAB PO SCH (22:24)
[2017-11-20] MEDS: BUDESONIDE 1 MG/2 ML NEBU INHALATION SCH (22:35)
[2017-11-21] MEDS: IPRATROPIUM-ALBUTEROL 3 ML NEB INHALATION SCH ×6 (03:05→23:13)
[2017-11-21] MEDS: BUDESONIDE 1 MG/2 ML NEBU INHALATION SCH ×2 (07:43→20:08)
--- NOTE | 2017-11-21 08:19 | XR ---
EXAMINATION TYPE: XR chest 2V DATE OF EXAM: 11/21/2017 COMPARISON: 11/20/2017 HISTORY: Shortness of breath TECHNIQUE: Frontal and lateral views of the chest are obtained. FINDINGS: Scattered senescent parenchymal changes noted. Hyperinflation compatible with COPD. Patchy left perihilar and basilar infiltrate persists and is unchanged. Heart size is stable. Mediastinal structures are stable and grossly unremarkable. No evidence for hilar prominence. Degenerative changes dorsal spine. IMPRESSION: 1. Patchy left perihilar and basilar infiltrate persists and is unchanged.
[2017-11-21] MEDS: THIAMINE 100 MG TAB PO SCH (09:21)
[2017-11-21] MEDS: CARVEDILOL 3.125 MG TAB PO SCH (09:21)
[2017-11-21] MEDS: guaiFENesin 600 MG TABLET.ER PO SCH ×2 (09:21→20:58)
[2017-11-21] MEDS: AZITHROMYCIN 500 MG TAB PO SCH (09:21)
[2017-11-21] MEDS: cefTRIAXone IN SWFI 1,000 MG/10 ML SYRINGE IVP SCH (09:22)
[2017-11-21] MEDS: LOSARTAN 25 MG TAB PO SCH (09:22)
[2017-11-21] MEDS: MULTIVITAMINS, THERA 1 EACH TAB PO SCH (09:22)
[2017-11-21] MEDS: FUROSEMIDE 40 MG TAB PO SCH (09:22)
[2017-11-21] MEDS: B COMPLEX-VIT C-VIT E-ZINC 1 EACH TAB PO SCH (09:22)
[2017-11-21] MEDS: ENOXAPARIN 40 MG/0.4 ML SYRINGE SQ SCH (09:22)
[2017-11-21] MEDS: NICOTINE 14MG/24HR PATCH TRANSDERM SCH (09:22)
--- NOTE | 2017-11-21 13:53 | P.CNPUL ---
History of Present Illness Consult date: 11/21/17 Reason for consult: dyspnea, COPD, hypoxemia, pneumonia, abnormal CXR/CT Chief complaint: Shortness of breath, pneumonia, hypoxemia, COPD History of present illness: Consult dated 11/21/2017 This is a 62-year-old black female who apparently was a inpatient for [facility] for drug and alcohol abuse. Apparently there she became short of breath. He knows her breathing pattern to be abnormal she was coughing wheezing congested and he decided to bring her here for evaluation. She was seen in the emergency room and admitted with a diagnosis of COPD exacerbation complicated by left sided pneumonia. The patient does feel a bit better now. She is a heavy smoker. She's been smoking for many many years. More than a pack to 2 packs a day. The patient's primary care physician is down in [facility]. The patient's history includes COPD heart failure hypertension pneumonia sleep apnea syndrome obesity. She also has a history of anxiety depression. She smokes heavily every day. Has been an IV drug abuser with heroin and also with alcohol abuser. This is why she was at [facility]. She does have home O2 at nighttime. She uses it 3-4 L. She is also hepatitis C positive. Her baseline bicarbonate concentration on the electrolyte profile suggests to me that her baseline or normal PaCO2 on blood gas would be about 68+ or -2 mmHg. Review of Systems A 12 point review of system is positive for chest tightness wheezing cough chest congestion shortness of breath and some phlegm production. Past Medical History Past Medical History: Asthma, Heart Failure, COPD, Hypertension, Pneumonia, Respiratory Disorder, Sleep Apnea/CPAP/BIPAP Additional Past Medical History / Comment(s): Home O2 at night 3-4 L. HEP C positive History of Any Multi-Drug Resistant Organisms: None Reported Past Surgical History: No Surgical Hx Reported Past Anesthesia/Blood Transfusion Reactions: No Reported Reaction Past Psychological History: Anxiety, Depression Smoking Status: Current every day smoker Past Alcohol Use History: Rare Past Drug Use History: Heroin - Past Family History Mother Family Medical History: Cancer, Diabetes Mellitus Father Family Medical History: Cancer Medications and Allergies Home Medications Medication Instructions Recorded Confirmed Type Carvedilol [Coreg] 3.125 mg PO DAILY 11/04/17 11/20/17 History Furosemide [Lasix] 40 mg PO DAILY 11/04/17 11/20/17 History Losartan [Cozaar] 25 mg PO DAILY 11/04/17 11/20/17 History Vitamin B Complex 1 cap PO DAILY 11/04/17 11/20/17 History Acetaminophen Tab [Tylenol Tab] 650 mg PO Q4H PRN 11/20/17 11/20/17 History Albuterol Inhaler [Ventolin Hfa 2 puff INHALATION RT-Q4H PRN 11/20/17 11/20/17 History Inhaler] Chlorpheniramine Maleate 4 mg PO Q4H PRN 11/20/17 11/20/17 History [Chlor-Trimeton] Ibuprofen [Motrin] 600 mg PO Q6H PRN 11/20/17 11/20/17 History Multivitamins, Thera [Multivitamin 1 tab PO DAILY 11/20/17 11/20/17 History (formulary)] Thiamine [Vitamin B-1] 100 mg PO DAILY 11/20/17 11/20/17 History traZODone HCL 50 - 150 mg PO HS 11/20/17 11/20/17 History Allergies Allergy/AdvReac Type Severity Reaction Status Date / Time No Known Allergies Allergy Verified 11/20/17 16:42 Physical Exam Osteopathic Statement: *. No significant issues noted on an osteopathic structural exam other than those noted in the History and Physical/Consult. Vitals: Vital Signs Temp Pulse Pulse Resp BP BP Pulse Ox 11/21/17 13:08 92 146/97 11/21/17 12:28 88 11/21/17 12:19 88 11/21/17 07:57 80 11/21/17 07:44 76 11/21/17 07:28 99.4 F 98 18 164/109 94 L 11/20/17 22:00 97.7 F 78 17 169/102 95 11/20/17 18:58 88 11/20/17 18:47 84 11/20/17 16:20 97.9 F 82 149/99 91 L 11/20/17 15:36 80 28 H 152/82 92 L 11/20/17 15:07 74 28 H 160/104 91 L 11/20/17 14:19 89 30 H 74 L 11/20/17 14:01 88 Intake and Output 11/20/17 11/21/17 11/21/17 22:59 06:59 14:59 Intake Total 440 Balance 440 Intake: Oral 440 Other: Voiding Method Bedside Commode Bedside Commode Bedside Commode # Voids 2 1 1 Weight 122 kg No acute distress, oriented 3. HEENT examination is grossly unremarkable. Mucous membranes are moist. No oral lesions. Neck supple. Full range of motion. No adenopathy thyromegaly or neck vein distention. Cardiovascular examination reveals regular rhythm rate. S1-S2 normal. No S3 or S4. No discernible murmur noted. Heart sounds are distant. Lungs reveal coarse expiratory rhonchi. This some expiratory wheezes. This some crackles at the left lung base. There is also dullness and decreased breath sounds at the left lung base.. Abdomen soft bowel sounds are heard. No masses or tenderness. Extremities are intact. No cyanosis clubbing or edema. Skin is without rash or lesion. Neurologic examination is brief but nonfocal. Results - Laboratory Findings CBC and BMP: 11/20/17 12:15 11/20/17 12:15 PT/INR, D-dimer PT 10.4 sec (9.0-12.0) 11/20/17 12:15 INR 1.1 (<1.2) 11/20/17 12:15 Abnormal lab findings: Abnormal Labs 11/20/17 11/20/17 12:15 12:15 Hct 47.1 H MCHC 28.7 L RDW 16.2 H Lymphocytes # 0.9 L Chloride 94 L Carbon Dioxide 41 H* - Diagnostic Findings Chest x-ray: image reviewed (Chest x-ray labs and medications are all reviewed.) Assessment and Plan Assessment: Assessment COPD exacerbation, complicated by left-sided pneumonia History of IV drug abuse and hepatitis C History of chronic alcohol abuse Chronic tobacco dependence for many years History of heart failure History of hypertension Morbid obesity Sleep apnea syndrome Anxiety/depression Previous history of heroin abuse Plan: Plan dated 11/21/2017 The patient's medications labs and x-rays are reviewed. We'll make sure the patient's on appropriate medications for his her COPD exacerbation. Additional recommendations and suggestions are forthcoming. Prognosis is poor. We'll continue to follow. The patient should have a nicotine patch. She should be transferred back to [facility] when she is feeling better. Time with Patient: Greater than 30
--- NOTE | 2017-11-21 17:24 | PN ---
PROGRESS NOTE DATE OF SERVICE: 11/21/2017 PRESENTING COMPLAINT: Short of breath. INTERVAL HISTORY: This patient presented with advanced COPD exacerbation, bilateral pneumonia; still quite a bit short of breath at rest. Patient did not really want to use BiPAP. She is still bringing up yellow-green sputum, cough. Did tolerate some diet. Lying in bed. REVIEW OF SYSTEMS: Done for constitutional, cardiovascular, GI, pulmonary; relevant findings as above. CURRENT MEDICATIONS: Reviewed. They include: 1. DuoNeb. 2. IV Solu-Medrol. 3. Zithromax. 4. Ceftriaxone. PHYSICAL EXAMINATION: Afebrile. Pulse 98, respiration 18, blood pressure 164/109, pulse ox 94% on 2 L. GENERAL APPEARANCE: Lying in bed, tired-appearing. EYES: Pupils equal. Conjunctivae normal. HEENT: External appearance of nose and ears normal. Oral cavity normal. NECK: Soft, thick. JVD unable to assess. Mass not palpable. RESPIRATORY: Effort increased. LUNGS: Accessory muscles are working. Patient is not able to speak in full sentences. Decreased breath sounds. Prolonged expiration. Some basal crackles. CARDIOVASCULAR: First and second sounds normal. No edema. ABDOMEN: Soft, non-tender. Liver and spleen not palpable. PSYCHIATRY: Alert and oriented x3. Mood and affect anxious-appearing. INVESTIGATIONS: No blood work from today. ASSESSMENT: 1. Bilateral pneumonia; suspect Gram-negative organism, present on admission. 2. Chronic hypoxic respiratory failure in a patient with known chronic obstructive pulmonary disease. 3. Acute hypoxic respiratory failure from chronic obstructive pulmonary disease, present on admission. 4. Morbid obesity with body mass index of 43.4. 5. Essential hypertension. 6. Obstructive sleep apnea. 7. Hepatitis C. 8. Anxiety and depression not otherwise specified. PLAN: Patient is slow to respond. Continue current medication and treatment plan. Repeat labs in the morning. Care was discussed with the patient. MMODL / IJN: [id number] /
[2017-11-21] MEDS: methylPREDNISolone SOD SUCCI 40 MG/ML 1 ML VIAL IV SCH (18:00)
[2017-11-21] MEDS: FORMOTEROL FUMARATE 20 MCG/2 ML NEBU INHALATION SCH (20:20)
[2017-11-21] MEDS: traZODone HCL 50 MG TAB PO SCH (20:58)
[2017-11-22] MEDS: methylPREDNISolone SOD SUCCI 40 MG/ML 1 ML VIAL IV SCH ×2 (00:12→05:43)
[2017-11-22] MEDS: IPRATROPIUM-ALBUTEROL 3 ML NEB INHALATION SCH ×2 (04:22→07:19)
[2017-11-22] MEDS: FORMOTEROL FUMARATE 20 MCG/2 ML NEBU INHALATION SCH (07:19)
[2017-11-22] MEDS: BUDESONIDE 1 MG/2 ML NEBU INHALATION SCH (07:19)
[2017-11-22 08:24] LABS: Glucose,Whole Blood 343 mg/dL (75-99)
--- NOTE | 2017-11-22 08:53 | CT ---
EXAMINATION TYPE: CODE STROKE: CT brain wo contr DATE OF EXAM: 11/22/2017 COMPARISON: NONE HISTORY: 62-year-old female confusion, Altered mental status. TECHNIQUE: Examination was done in axial plane without intravenous contrast. Coronal and sagittal r econstructions performed. CT DLP: 788.8 mGycm Automated exposure control for dose reduction was used. FINDINGS: There is an intraparenchymal hematoma centered in the left thalamus measuring 3.0 x 2.7 cm on axial s eries and 4.1 cm craniocaudal on coronal series. There is intraventricular extension of hemorrhage into the bilateral lateral ventricles, third ventri benja, and fourth ventricle. No hydrocephalus. No midline shift appreciated at this time. There is minimal surrounding vasogenic edema around the left thalamic hematoma. No extra-axial fluid collection. No effacement of cerebral sulci. [place]lejo-white matter differentiation appears maintained. No herniation identified. Partially empty sella. IMPRESSION: 1. Moderate to large sized 4.1 x 3.0 cm left thalamic intraparenchymal hematoma. No midline shift or herniation at this time. 2. Prominent hemorrhage extends throughout the ventricular system. No hydrocephalus. Critical findings called to nurse Mcneil on [facility] at 8:49 AM.
[2017-11-22 09:18] LABS: Basophils % (A) 0 %; Eosinophils % (A) 0 %; HCT 49.4 % (34.0-46.0); HGB 14.3 gm/dL (11.4-16.0); Hypochromasia Marked; Lymphocytes # (A) 0.6 k/uL (1.0-4.8); Lymphocytes % (A) 8 %; MCH 25.4 pg (25.0-35.0); MCHC 28.9 g/dL (31.0-37.0); MCV 87.9 fL (80.0-100.0); Mean Platelet Volume 7.3; Monocytes # (A) 0.1 k/uL (0-1.0); Monocytes % (A) 2 %; Neutrophils # (A) 6.7 k/uL (1.3-7.7); Neutrophils % (A) 89 %; Platelet Count 276 k/uL (150-450); RBC 5.62 m/uL (3.80-5.40); RDW 15.9 % (11.5-15.5); WBC 7.5 k/uL (3.8-10.6)
[2017-11-22] MEDS ORDERED: DEXAMETHASONE SOD PHOSPHATE 10 MG/ML 1 ML VIAL IV STA (09:32)
[2017-11-22 09:36] LABS: Calcium 9.3 mg/dL (8.4-10.2); Potassium 5.4 mmol/L (3.5-5.1)
[2017-11-22 09:37] LABS: Glucose,Whole Blood 110 mg/dL (75-99)
[2017-11-22] MEDS: CARVEDILOL 3.125 MG TAB PO SCH (09:39)
[2017-11-22] MEDS: B COMPLEX-VIT C-VIT E-ZINC 1 EACH TAB PO SCH (09:40)
[2017-11-22] MEDS: AZITHROMYCIN 500 MG TAB PO SCH (09:40)
[2017-11-22] MEDS: NICOTINE 14MG/24HR PATCH TRANSDERM SCH (09:41)
[2017-11-22] MEDS: ENOXAPARIN 40 MG/0.4 ML SYRINGE SQ SCH (09:41)
[2017-11-22] MEDS: guaiFENesin 600 MG TABLET.ER PO SCH (09:41)
[2017-11-22] MEDS: FUROSEMIDE 40 MG TAB PO SCH (09:41)
[2017-11-22] MEDS: LOSARTAN 25 MG TAB PO SCH (09:41)
[2017-11-22] MEDS: THIAMINE 100 MG TAB PO SCH (09:41)
[2017-11-22] MEDS: MULTIVITAMINS, THERA 1 EACH TAB PO SCH (09:41)
--- NOTE | 2017-11-22 09:51 | P.CNNES ---
History of Present Illness Consult date: 11/22/17 Reason for Consult: Patient seen in the ICU with acute ICH and acute stroke. History of Present Illness: This neurology consultation was notified to Dr. Jese Paul on 11/22/2017 at 9: 25 AM for consultation in the intensive care unit regarding acute intracerebral hemorrhage and stroke. This patient is a 62-year-old right-handed -[place] female who was admitted to Hospital on 11/20/2017 for evaluation of respiratory distress and bilateral pneumonia. Patient was making progress and at about 8:15 AM on 2017 a code stroke was called on the medical floor. The patient apparently had symptoms of acute confusion with right-sided weakness. She was sent for a stat computed tomography scan of the brain. A CAT scan of the brain revealed evidence of a large 4.1 x 3.0 left thalamic intraparenchymal hemorrhage with no midline shift. There was prominent hemorrhage extending into the ventricular system with no evidence of hydrocephalus. The patient was very much aphasic. She had hypertensive urgency. She was transferred immediately to the intensive care unit for close monitoring. Neurology was consulted this morning at 9:25 AM for further evaluation. She is seen in the intensive care unit at this time and remains aphasic. She has right-sided hemiparesis. We reviewed the CAT scan films which reveals evidence of the large left thalamic intraparenchymal hemorrhage with extension into the ventricular system. A code stroke was initiated on the medical floor and the stroke robot was activated. The taxicab coordinator did contact Dr. Norris who reviewed the CAT scan films and recommends the patient to be transferred immediately by EMS to the [facility] for ongoing treatment acutely. We did review the CAT scan films and have recommended the patient be started on Decadron 10 mg IV push 1 now. We will maintain the patient on Decadron 6 mg IV push every 6 hours until transfer. The patient is resting comfortably but has evidence of uncontrolled hypertension. Recommend close monitoring of her blood pressure in the ICU at this time. The patient remains aphasic but does seem to understand some questions. Apparently she was able to answer a few short 1 sessions early in the ICU. We have recommended the patient to be transferred immediately to the neurosurgical ICU at [facility] for further management. This has been arranged at this time and she is being readied for transfers soon as possible for ongoing neural neurological and neurosurgical care. At this time the patient remains relatively stable. She remains aphasic. She does have significant right-sided hemiparesis following the acute stroke. We have discussed these findings with the ICU nursing staff at bedside. We have recommended close monitoring of her blood pressure. Apparently her blood pressure has fluctuated earlier in the day as well. We will continue close neurological follow-up for the patient in the intensive care unit. Her overall prognosis at this time remains very guarded. Review of Systems ROS unobtainable: due to mental status Constitutional: Denies chills, Denies fever Eyes: denies blurred vision, denies pain Ears, nose, mouth and throat: Denies headache, Denies sore throat Cardiovascular: Denies chest pain, Denies shortness of breath Respiratory: Denies cough Gastrointestinal: Denies abdominal pain, Denies diarrhea, Denies nausea, Denies vomiting Genitourinary: Denies dysuria, Denies hematuria Musculoskeletal: Denies myalgias Integumentary: Denies pruritus, Denies rash Neurological: Reports aphasia, Reports change in mentation, Reports change in speech, Reports confusion, Reports headaches, Reports motor disturbance, Reports paralysis, Reports transient paralysis, Denies numbness, Denies weakness Psychiatric: Reports irritability Endocrine: Denies fatigue, Denies weight change Past Medical History Past Medical History: Asthma, Heart Failure, COPD, Hypertension, Pneumonia, Respiratory Disorder, Sleep Apnea/CPAP/BIPAP Additional Past Medical History / Comment(s): Home O2 at night 3-4 L. HEP C positive. Substance abuse issues(Heroin Abuse)-Currently receiving treatment at [facility]. History of Any Multi-Drug Resistant Organisms: None Reported Past Surgical History: No Surgical Hx Reported Past Anesthesia/Blood Transfusion Reactions: No Reported Reaction Past Psychological History: Anxiety, Depression Smoking Status: Current every day smoker Past Alcohol Use History: Rare Past Drug Use History: Heroin - Past Family History Mother Family Medical History: Cancer, Diabetes Mellitus Father Family Medical History: Cancer Medications and Allergies Home Medications Medication Instructions Recorded Confirmed Type Carvedilol [Coreg] 3.125 mg PO DAILY 11/04/17 11/20/17 History Furosemide [Lasix] 40 mg PO DAILY 11/04/17 11/20/17 History Losartan [Cozaar] 25 mg PO DAILY 11/04/17 11/20/17 History Vitamin B Complex 1 cap PO DAILY 11/04/17 11/20/17 History Acetaminophen Tab [Tylenol Tab] 650 mg PO Q4H PRN 11/20/17 11/20/17 History Albuterol Inhaler [Ventolin Hfa 2 puff INHALATION RT-Q4H PRN 11/20/17 11/20/17 History Inhaler] Chlorpheniramine Maleate 4 mg PO Q4H PRN 11/20/17 11/20/17 History [Chlor-Trimeton] Ibuprofen [Motrin] 600 mg PO Q6H PRN 11/20/17 11/20/17 History Multivitamins, Thera [Multivitamin 1 tab PO DAILY 11/20/17 11/20/17 History (formulary)] Thiamine [Vitamin B-1] 100 mg PO DAILY 11/20/17 11/20/17 History traZODone HCL 50 - 150 mg PO HS 11/20/17 11/20/17 History Allergies Allergy/AdvReac Type Severity Reaction Status Date / Time No Known Allergies Allergy Verified 11/20/17 16:42 Physical Examination - Vital Signs Vital Signs: Vital Signs Temp Pulse Pulse Resp BP Pulse Ox 11/22/17 07:42 80 11/22/17 07:32 81 18 11/22/17 07:21 78 18 90 L 11/22/17 06:22 98 F 87 18 162/100 95 11/22/17 00:00 85 20 11/21/17 22:13 98.1 F 85 20 141/81 92 L 11/21/17 20:28 88 11/21/17 20:20 88 11/21/17 20:10 86 11/21/17 16:06 90 11/21/17 15:56 88 11/21/17 15:00 97.5 F L 87 16 121/68 91 L 11/21/17 14:49 91 L 11/21/17 13:08 92 146/97 11/21/17 12:28 88 11/21/17 12:19 88 Intake and Output 11/21/17 11/22/17 11/22/17 22:59 06:59 14:59 Intake Total 120 60 Balance 120 60 Intake: Oral 120 60 Other: Voiding Method Bedside Commode Bedside Commode Bedside Commode # Voids 2 Weight 118.5 kg - Constitutional General appearance: disheveled, obese - EENT EENT: PERRL, mucous membranes moist - Respiratory Respiratory: lungs clear, normal breath sounds - Cardiovascular Cardiovascular: regular rate, normal S1, normal S2 Extremities: no peripheral edema bilaterally - Gastrointestinal Gastrointestinal: normoactive bowel sounds - Integumentary Integumentary: normal - Neurologic Cranial nerve examination: PERRL, EOMI, V1/V2/V3 grossly intact, tongue midline , intact gag reflex, intact corneal reflex, facial droop (Right upper motor neuron facial weakness pattern.), normal palatal elevation Speech examination: global aphasia Sensorimotor examination: intact Motor examination - right side: 1/5: biceps, triceps, wrist flexion, wrist extension, forepart rasper, hip flexors, knee extensors, dorsiflexion, toe extension (EHL) , plantarflexion Motor examination - left side: 4/5: biceps, triceps, wrist flexion, wrist extension, forepart rasper, hip flexors, knee extensors, dorsiflexion, toe extension (EHL) , plantarflexion Detailed sensory examination: intact Reflex and gait examination: intact Reflexes: 1+: ankle, bicep, knee, tricep - Musculoskeletal Musculoskeletal: no pain - Psychiatric Psychiatric: mood/affect appropriate, agitated Results - Laboratory Findings CBC and BMP: 11/22/17 07:39 11/20/17 12:15 Abnormal Lab Findings: Abnormal Labs 11/20/17 11/20/17 11/22/17 12:15 12:15 07:39 RBC 5.62 H Hct 47.1 H 49.4 H MCHC 28.7 L 28.9 L RDW 16.2 H 15.9 H Lymphocytes # 0.9 L 0.6 L Chloride 94 L Carbon Dioxide 41 H* POC Glucose (mg/dL) 11/22/17 08:23 RBC Hct MCHC RDW Lymphocytes # Chloride Carbon Dioxide POC Glucose (mg/dL) 343 H Assessment and Plan (1) Acute intracerebral hemorrhage Current Visit: Yes Status: Acute Code(s): I61.9 - NONTRAUMATIC INTRACEREBRAL HEMORRHAGE, UNSPECIFIED SNOMED Code(s): 019103260 (2) Thalamic hemorrhage with stroke Current Visit: Yes Status: Acute Code(s): I61.9 - NONTRAUMATIC INTRACEREBRAL HEMORRHAGE, UNSPECIFIED SNOMED Code(s): 778523378 (3) Acute exacerbation of chronic obstructive airways disease Current Visit: Yes Status: Acute Code(s): J44.1 - CHRONIC OBSTRUCTIVE PULMONARY DISEASE W (ACUTE) EXACERBATION SNOMED Code(s): 929490097 (4) Community acquired pneumonia Current Visit: Yes Status: Acute Code(s): J18.9 - PNEUMONIA, UNSPECIFIED ORGANISM SNOMED Code(s): 417987153 Plan: This patient is a 62-year-old right-handed -[place] female who was initially admitted to Hospital on 11/20/2017 with symptoms of bilateral pneumonia and respiratory distress. A code stroke was initiated today on 2017 at 8:15 AM as a patient showed signs of acute right-sided weakness and slurred speech. She was sent for an immediate stat computed tomography scan of the brain. Results of the CAT scan errors noted above. She has evidence of a moderate to large size acute left thalamic intraparenchymal hemorrhage. There was no midline shift. There was prominent hemorrhage into the ventricular system with no signs of hydrocephalus. Neurology was consulted urgently this morning at 9:25 AM for evaluation of this patient in the intensive care unit. The cold stroke was initiated and the neural interventionalists Dr. Norris has accepted the patient and transferred to the [facility] neuro ICU for immediate treatment. The patient is awaiting transfer at this time to the [facility] neuro ICU for further management. At this time she remains aphasic with right-sided hemiparesthesias. We have started the patient on IV Decadron. We recommend close monitoring of her blood pressure during her stay in the ICU at this time. She is being readied for transfer to [facility] neuro ICU for ongoing treatment and management. Her overall prognosis at this time remains very guarded. We have reviewed the actual CAT scan films today. We will continue to follow her progress closely as she is waiting transfer by EMS to the [facility] where she has been accepted by Dr. Norris. We will continue with neuro checks during her stay here in the intensive care unit. Her blood pressure is being tightly monitored and controlled at this time. Once again her overall prognosis at this time remains very guarded. According to the ICU nursing staff EMS sister arrived in 10 minutes. Would recommend ACLS protocol for her transferred to [facility] neuro ICU for further management. We will continue to follow the patient as needed while she remains in the intensive care unit here. Once again her overall prognosis at this time remains very guarded. Time with Patient: Greater than 30
[2017-11-22 09:53] VITALS: TEMP 97.7
[2017-11-22 09:58] VITALS: BP 167/126; PULSE 84; RESP 44
[2017-11-22] MEDS: cefTRIAXone IN SWFI 1,000 MG/10 ML SYRINGE IVP SCH (10:12)
[2017-11-22] MEDS ORDERED: DEXAMETHASONE SOD PHOSPHATE 10 MG/ML 1 ML VIAL IV SCH (16:00)
--- NOTE | 2017-11-23 06:31 | DS ---
DISCHARGE SUMMARY DATE OF ADMISSION: 11/20/2017. DATE OF TRANSFER: November 22, 2017. FINAL DIAGNOSES: 1. Bilateral pneumonia suspect gram-negative organism present on admission. 2. Chronic hypoxic respiratory failure in a patient known chronic obstructive pulmonary disease. 3. Acute hypoxic respiratory failure from chronic obstructive pulmonary disease exacerbation, present on admission. 4. Morbid obesity BMI 43.4. 5. Essential hypertension. 6. Obstructive sleep apnea. 7. Hepatitis C. 8. Anxiety, depression not otherwise specified. REASON FOR TRANSFER: Acute thalamic intraparenchymal cerebral bleed causing acute stroke. HOSPITAL COURSE: This is a patient, who has been a long-standing smoker, presented with bilateral pneumonia, severe chronic obstructive pulmonary disease exacerbation, was treated with antibiotics and steroids, nebulized bronchodilators, BiPAP. Early this morning the patient had a change of mental status. CT scan of the brain showed a large intrathalamic bleed. Initially the patient was supposed to be transferred to [facility] and then they decided to transfer the patient to [facility]. Neurology was consulted. On examination, the patient is breathing, not following commands. Breathing spontaneously. The patient is being transferred as above. Prognosis guarded. Discharge transfer planning more than 35 minutes. CONSULTATION: Dr. Gonzalez from Pulmonary, Dr. Ramiro Paul from Neurology. MMODL / IJN: [id number] /
--- NOTE | 2017-11-29 07:51 | CDI ---
Last Revision, June 2017 Documentation Clarification Form Date: 11/29/17 From: Ellen Isbell Phone: If you have a question regarding this query, please contact Julio Cesar Pantoja at [phone] between 8am and 5pm. Admit Date: 11/20/2017 2:49:00 PM Patient Name: Dianne Kerr Visit Number: [id number] Discharge Date: 11/22/17 ATTENTION: The Clinical Documentation Specialists (CDI) and [facility] Coding Staff appreciate your assistance in clarifying documentation. Please respond to the clarification below the line at the bottom and electronically sign. The CDI & [facility] Coding staff will review the response and follow-up if needed. Please note: Queries are made part of the Legal Health Record. If you have any questions, please contact the author of this message via ITS. Dr. Regino Brown Per Dr. Gonzalez's and Dr. Montoya's consult notes the patient has a history of heart failure. History/Risk Factors: Patient has a history of hypertension. Treatment: Patient takes PO Lasix. In your professional opinion, can you please clarify the type of CHF if known? Systolic Heart Failure: Diastolic Heart Failure: Systolic & Diastolic Heart Failure: Unable to Determine Other, please specify NO CHF MTDD
== END 2017-11-22 10:38 | disposition short-term general hospital (02) | DRG 177 ==
LOC: EC 11:59 → 5MS5E 14:49 → 6ICU 11-22 08:45
PROVIDERS: ADMIT Hospitalist; ATTEND Hospitalist
DX: J15.6 Pneumonia due to other Gram-negative bacteria (principal); J96.21 Acute and chronic respiratory failure with hypoxia; I61.8 Other nontraumatic intracerebral hemorrhage; J44.0 Chronic obstructive pulmonary disease with (acute) lower respiratory infection; J44.1 Chronic obstructive pulmonary disease with (acute) exacerbation; R47.01 Aphasia; G81.91 Hemiplegia, unspecified affecting right dominant side; Z68.41 Body mass index [BMI] 40.0-44.9, adult; R29.723 NIHSS score 23; B19.20 Unspecified viral hepatitis C without hepatic coma; E66.01 Morbid (severe) obesity due to excess calories; F17.210 Nicotine dependence, cigarettes, uncomplicated; F32.9 Major depressive disorder, single episode, unspecified; F41.9 Anxiety disorder, unspecified; G47.33 Obstructive sleep apnea (adult) (pediatric); I11.0 Hypertensive heart disease with heart failure; I16.0 Hypertensive urgency; F10.10 Alcohol abuse, uncomplicated; F19.10 Other psychoactive substance abuse, uncomplicated; Z99.81 Dependence on supplemental oxygen; Z87.01 Personal history of pneumonia (recurrent); Z79.51 Long term (current) use of inhaled steroids; Z79.899 Other long term (current) drug therapy; Z83.3 Family history of diabetes mellitus; Z80.9 Family history of malignant neoplasm, unspecified
CPT/HCPCS: 36415; 70450; 71046; 80048; 80053; 82550; 82553; 83735; 83880; 84484; 85025; 85610; 85730; 87040; 93005; 94640; 94644; 94660; 96374; 96375; 99285